=== PATIENT | female | born 1955 | race Caucasian/White ===

== ENCOUNTER → 2016-05-18 | Outpatient (CLI) | payer BC ==
[~2016-05-18] MED LIST: *PREMTA OR; /ONDA4TA OR; IBUP800T OR; IBUPPOW25 PO; MAALOX ADVANCED OR; MULTIVIT PO; NEUR300C OR; PAXI40TA OR; SOMA350T PO; TRAM50TA2 OR; VIT D 2000 PO; VITAMIN B COMPLE1 OR; [UNRECOGNIZED DRUG - OTHER]; [UNRECOGNIZED DRUG - OTHER]; [UNRECOGNIZED DRUG - OTHER] OR
== END ==
LOC: M PAIN 10:20
PROVIDERS: ATTEND Nurse Practitioner Family
DX: Z09 Encounter for follow-up examination after completed treatment for conditions other than malignant neoplasm (principal); G89.29 Other chronic pain; M47.812 Spondylosis without myelopathy or radiculopathy, cervical region; M79.1 Myalgia; M54.12 Radiculopathy, cervical region; K21.9 Gastro-esophageal reflux disease without esophagitis; Z79.891 Long term (current) use of opiate analgesic; Z79.82 Long term (current) use of aspirin; Z79.899 Other long term (current) drug therapy; Z86.19 Personal history of other infectious and parasitic diseases

== ENCOUNTER → 2016-08-03 | Outpatient (CLI) | payer BC ==
--- NOTE | 2016-08-03 13:44 | REP ---
Clinical: Left-sided pelvic pain. Technique: Transabdominal pelvic ultrasound followed by transvaginal examination for better evaluation of the endometrium and adnexa with color Doppler evaluation of the ovaries. Findings: Bladder is unremarkable and measures 10.1 x 8.1 x 7.4 cm . Normal anteverted uterus measures 8.4 x 2.0 x 4.6 cm. The endometrial complex measures 1.3 mm thickness. No discrete uterine or endometrial abnormalities are appreciated. Left ovary is normal in appearance and vascularity without evidence for torsion. Left ovary measures 1.4 x 1.1 x 1.7 cm ; R I = 0.53. The patient is status post right oophorectomy. No pelvic fluid or adnexal mass lesion. Impression: 1. Normal uterus and left ovary. 2. Status post right oophorectomy.
--- NOTE | 2016-08-03 13:54 | REPMRS ---
Patient History The patient states she had a clinical breast exam in 07/20 Patient is postmenopausal. Family history of breast cancer in 2 sisters under age 50 and breast cancer in paternal grandmother at age 50 or over. Digital Woman Screen Mammo: August 03, 2016 - Exam #: [id number] Bilateral CC and MLO view(s) were taken. Technologist: Sheila Agarwal, Technologist Prior study comparison: November 03, 2014, digital woman screen mammo performed at [facility]. October 31, 2011, digital woman screen mammo performed at [facility]. September 27, 2010, bilateral bilat screen digital mammo performed at [facility] to [facility]. FINDINGS: There are scattered fibroglandular densities. There has been no change in the appearance of the mammogram from the prior studies. There is a mild amount of residual fibroglandular tissue which is fairly symmetric. There is no interval development of dominant mass, architectural distortion, or clustered microcalcification suggestive of malignancy. No significant changes when compared with prior studies. ASSESSMENT: BI-RADS/ACR category 1 mammogram. Negative. Recommendation Routine screening mammogram in 1 year (for women over age 40). This mammogram was interpreted with the aid of an FDA-approved computer-aided dectection system. A. Negative x-ray reports should not delay biopsy if a dominant or clinically suspicious mass is present. B. Four to eight percent of cancers are not identified by mammography. C. Adenosis and dense breast may obscure an underlying neoplasm. Electronically Signed By: Pavel Langley MD 08/03/16 [id number]
== END ==
LOC: M WHC 12:25
PROVIDERS: ATTEND Advanced Practice Midwife
DX: R10.30 Lower abdominal pain, unspecified (principal); Z12.39 Encounter for other screening for malignant neoplasm of breast
CPT/HCPCS: 76830; 76856; G0202

== ENCOUNTER → 2016-09-28 | Outpatient (CLI) | payer BC ==
--- NOTE | 2016-10-02 13:08 | DEXA ---
AP SPINE L1 - L4 0.929 -2.1 -0.2 LT FEMUR TOTAL 0.678 -2.6 -1.2 RT FEMUR TOTAL 0.711 -2.4 -1.0 TOTAL BODY TOTAL OTHER DUAL FEMUR FRAX* ASSESSMENT Risk factors: None. 10 year probability of fracture Major osteoporotic fracture 10.9 % Hip fracture 2.3 % COMMENTS: There is low bone density of the spine. There is low bone density of the right hip. There is osteoporosis of the left hip. The density of the spine has decreased 12.9% since the initial exam on 2003. The spine density has decreased 17.1% since the most recent exam on 11/19/2005. The density of the left hip has decreased 16.7% since the initial exam on 09/19. The density of the left hip has decreased 16.2% since the most recent exam on . The density of the right hip has decreased 15.5% since the initial exam on 09/19. The density of the right hip has decreased 15.8% since the most recent exam on 11/19/2005. FOLLOW-UP: Recommendation for the next bone density exam: 2 years. RADHA
== END ==
LOC: M WHC 09:49
PROVIDERS: ATTEND Advanced Practice Midwife
DX: N95.8 Other specified menopausal and perimenopausal disorders (principal)

== ENCOUNTER → 2016-11-15 | Outpatient (CLI) | payer BC ==
--- NOTE | 2016-12-09 23:59 | ECWPNPC ---
PATIENT NAME: MARY KATE HAMMOND : 1955 GENDER: FEMALE VISIT DATE: 11/15/2016 DISCHARGE DATE: 11/15/16 1122 VISIT LOCKED DATE TIME: PHYSICIAN: LEON LAURENT RESOURCE: LEON LAURENT REASON FOR APPOINTMENT 1. BACK/NECK HISTORY OF PRESENT ILLNESS HISTORY OF PRESENT ILLNESS: PAIN THE PATIENT DESCRIBES THE PAIN... FALL RISK SCREENING: SCREENING :NO FALLS IN THE PAST YEAR TODAY'S VISIT: NOTES: RATES PAIN LEVEL TODAY 6/10. DESCRIBES PAIN CONSTANT, ACHING, TENDER, THROBBING AND SORE. REPORTS NEW NUMBNESS AND TINGLING/T IN LEFT UPPER EXT WITH NECK FLEXION. . CURRENT MEDICATIONS TAKING GABAPENTIN 300 MG CAPSULE 1 CAPSULE ORALLY THREE TIMES A DAY TAKING PAXIL 10 MG TABLET 1 TABLET IN THE MORNING ORALLY ONCE A DAY TAKING TRAMADOL HCL 50 MG TABLET 1 TABLET NEEDED ORALLY EVERY 6 HRS PRN PAIN MDD=4 CHRONIC PAIN TAKING METAXALONE 400 MG TABLET 1 ORALLY BEFORE BEDTIME NOT-TAKING PERCOCET 10-325 MG TABLET 1 TABLET ORALLY TAKE 1 TAB ON ARRIVAL TO CLINIC FOR PROCEDURE, AND TAKE ONE ON ARRIVAL TO HOME AFTER MDD=2 DISCONTINUED ASPIR-81 81 MG TABLET DELAYED RELEASE 1 TABLET ORALLY ONCE A DAY MEDICATION LIST REVIEWED AND RECONCILED WITH THE PATIENT PAST MEDICAL HISTORY HEPATITIS ACID REFLUX ALLERGIES NONE REVIEW OF SYSTEMS REVIEWED BY: PROVIDER: LEON LAURENT BOTTLING EQUIPMENT SALES REPRESENTATIVE . CONSTITUTIONAL: ANY CHANGE IN YOUR MEDICAL CONDITION? YES, ULCERS, TAKING 2 NEW MEDS PATIENT UNSURE OF WHAT. WILL LET US KNOW WHAT. . CHILLS NO . FEVER NO . INFECTION: DO YOU HAVE NEW INFECTIONS? NO . DO YOU HAVE HISTORY OF MRSA? NO . MUSCULOSKELETAL: ANY NEW PATTERNS OF PAIN OR NUMBNESS? YES, RIGHT ARM GOES COMPLETELY NUMB, WORSE WHEN DRIVING. . GASTROENTEROLOGY: GENERAL NEW DX OF GI ULCERS. DCS WORKING BUT NEEDS ADJUST. TO HAVE ENDOSCOPY IN DECEMBER . ANY NEW CHANGE IN BOWEL CONTROL? NO . GENITOURINARY: ANY NEW CHANGE IN BLADDER CONTROL? NO . IS THERE A CHANCE YOU COULD BE ? NO . HEMATOLOGY/LYMPH: DO YOU TAKE ANY BLOOD THINNERS? (FOR EXAMPLE- COUMADIN, PLAVIX, AGGRENOX, PLATEL, PRADAXA, OR XARELTO) NO . WHEN WAS YOUR LAST DOSE? DATE: TIME: . NEUROLOGY: HAVE YOU FALLEN IN THE PAST 6 MONTHS? YES . ANY NEW EXTREMITY NUMBNESS OR WEAKNESS? NO . CARDIOLOGY: DO YOU HAVE A PACEMAKER OR DEFIBRILLATOR? NO . RESPIRATORY: HAVE YOU BEEN SICK IN THE PAST WEEK? NO . FEVER NO . FLU LIKE SYMPTOMS? NO . COUGH NO . INTEGUMENTARY: DO YOU HAVE ANY RASHES OR OPEN SORES? NO . ALLERGIC/IMMUNO: ARE YOU ALLERGIC TO SHELLFISH OR IV DYE? NO . ANY NEW ALLERGIES? NO . PSYCHIATRIC: DO YOU HAVE THOUGHTS OF HURTING YOURSELF OR SOMEONE ELSE? NO . ARE YOU ABUSED, NEGLECTED, OR IN AN UNSAFE ENVIRONMENT? NO . ENDOCRINOLOGY: ARE YOU DIABETIC? NO . OTHER: DO YOU NEED ANY PRESCRIPTIONS? YES . IF YES, PLEASE LIST: TRAMADOL . ANY NEW PROBLEMS WITH YOUR MEDICATIONS? NO . WHEN DID YOU LAST EAT? ____ . WHEN DID YOU LAST DRINK? ____ . WHAT DID YOU LAST DRINK? ____ . NAME OF PERSON DRIVING YOU HOME? ____ . DO YOU HAVE ANY OTHER QUESTIONS OR CONCERNS NO . VITAL SIGNS WT 116.6 LBS, HT 64", BMI 20.01 INDEX, BP 111/63 MM HG, HR 70 /MIN, RR 16 /MIN, TEMP 97.7 F, OXYGEN SAT % 97%, REVIEWED BY: ANA. EXAMINATION GENERAL EXAMINATION: GENERAL APPEARANCE:COLOR PALE, ANXIOUS, THIN. PSYCHALERT , ORIENTED X 3 , APPROPRIATE MOOD AND AFFECT . LUNGS:CLEAR TO AUSCULTATION BILATERALLY. HEART:HEART RATE REGULAR. MUSCULOSKELETAL:MUSCLE STRENGTH TESTING 5/5 BILATERAL UPPER EXTREMITIES, TRIGGER POINTS:, ELICITED WITH PALPATION OVER CERVICAL SPINOUS PROCESSES AND ACROSS THE TRAPEZIUS MUSCLES BILATERALLY. RESTRICTION OF ROM IS NOTED. LOSS OF CERVICAL CURVE.. NEUROLOGIC EXAM:CN'S II-XII GROSSLY INTACT. INTACT SHOULDER SHRUG. . ASSESSMENTS CERVICAL SPONDYLOSIS - M47.812 (PRIMARY) MYALGIA - M79.1 CERVICAL RADICULOPATHY - M54.12 TREATMENT CERVICAL SPONDYLOSIS REFILL TRAMADOL HCL TABLET, 50 MG, 1 TABLET NEEDED, ORALLY, EVERY 6 HRS PRN PAIN MDD=4 CHRONIC PAIN, 30 DAY(S), 120, REFILLS 5 STOP METAXALONE TABLET, 400 MG, 1, ORALLY, BEFORE BEDTIME START BACLOFEN TABLET, 10 MG, 1 TABLET WITH FOOD OR MILK, ORALLY, BEFORE BEDTIME, 30 DAY(S), 30, REFILLS [address] [facility] SPINE, LUMBAR W/O [id number],SUSAN M 11/15/2016 11:13:17 AM > LUMBAR RADICULOPATHY - HAS DORSAL COLUMN STIM ARMIDA DAVID 11/20/2016 1:57:44 PM > NO AUTH NEEDED, BASED ON MEDICAL NECESSITY REF [id number] NOTES: USE NECK COLLAR. APPLY ICY-HOT. CONSIDER INJECTION CERVICAL FACET OR LUMBAR FACET BLOCK IN FUTURECALL BECKY [employer]ES /[employer] ABOUT DCS ADJUSTMENT [phone]. PROCEDURE CODES FA211 ESTABILISHED PATIENT [facility] FACILITY CHARGE DISPOSITION & COMMUNICATION FOLLOW UP 3 MONTH (REASON: NECK/BACK CHECK AUTH FOR CT LUMBAR SPINE) ELECTRONICALLY SIGNED BY ALON WINKLER ON 12/09/2016 AT 11:19 AM EDT DISCLAIMER : THIS IS A VISIT SUMMARY EXTRACTED FROM THE [employer] CHART. IT IS NOT A COPY OF THE [employer] PROGRESS NOTE. RADHA
== END ==
LOC: M PAIN 10:00
PROVIDERS: ATTEND Nurse Practitioner Family
DX: M47.812 Spondylosis without myelopathy or radiculopathy, cervical region (principal); M54.12 Radiculopathy, cervical region; M79.1 Myalgia; K21.9 Gastro-esophageal reflux disease without esophagitis; K25.9 Gastric ulcer, unspecified as acute or chronic, without hemorrhage or perforation; Z79.891 Long term (current) use of opiate analgesic; Z79.899 Other long term (current) drug therapy

== ENCOUNTER → 2017-01-17 | Outpatient (CLI) | payer BC ==
--- NOTE | 2017-02-07 02:02 | ECWPNPC ---
PATIENT NAME: MARY KATE HAMMOND : 1955 GENDER: FEMALE VISIT DATE: 01/17/2017 DISCHARGE DATE: 01/17/17 1256 VISIT LOCKED DATE TIME: PHYSICIAN: LEON LAURENT RESOURCE: LEON LAURENT HISTORY OF PRESENT ILLNESS HISTORY OF PRESENT ILLNESS: PAIN THE PATIENT DESCRIBES THE PAIN... FALL RISK SCREENING: SCREENING :NO FALLS IN THE PAST YEAR TODAY'S VISIT: NOTES: PRATES PAIN TODAY 6/10. NOTES NUMBNESS INTERMITTANTLY IN ALL FINGERS BOTH HANDS. SEEMS TO BE WORSE AT WHEN DRIVING, WHEN SLEEPING. IS CONTINUING TO HAVE PAIN ACROSS THE LOW BACK WITH RADIATION TO LEFT LEG TO FOOT. OCCAS ON RIGHT. CURRENT MEDICATIONS TAKING GABAPENTIN 300 MG CAPSULE 2 ORALLY THREE TIMES A DAY TAKING PAXIL 10 MG TABLET 1 TABLET IN THE MORNING ORALLY ONCE A DAY TAKING TRAMADOL HCL 50 MG TABLET 1 TABLET NEEDED ORALLY EVERY 6 HRS PRN PAIN MDD=4 CHRONIC PAIN TAKING BACLOFEN 10 MG TABLET 1 TABLET WITH FOOD OR MILK ORALLY BEFORE BEDTIME TAKING CALCIUM + D 600-200 MG-UNIT TABLET 1 TABLET WITH FOOD ORALLY ONCE A DAY NOT-TAKING PERCOCET 10-325 MG TABLET 1 TABLET ORALLY TAKE 1 TAB ON ARRIVAL TO CLINIC FOR PROCEDURE, AND TAKE ONE ON ARRIVAL TO HOME AFTER MDD=2 MEDICATION LIST REVIEWED AND RECONCILED WITH THE PATIENT PAST MEDICAL HISTORY HEPATITIS ACID REFLUX ALLERGIES NONE SOCIAL HISTORY GENERAL: TOBACCO USE ARE YOU A:NONSMOKER LEARNING BARRIERS / SPECIAL NEEDS ORIENTED TO PLAN OF CARE: PATIENT, PAIN MANAGEMENT PATIENT, ORIENTED TO PLAN OF CARE: PATIENT, PAIN MANAGEMENT PATIENT. NEW PATIENT PAIN DIARY TODAY'S VISITNOTES FROM 0-10, WHAT LEVEL IS YOUR PAIN TODAY?0 PAIN CLINIC PFS, CLERGY, PUBLIC HEALTH REFERRALS PFS REFERRAL NEEDED?NO CLERGY REFERRAL NEEDED?NO PUBLIC HEALTH REFERRAL NEEDED?NO WAS THE PROVIDER NOTIFIED OF ANY PERTINENT INFO?NO HAS THE PATIENT BEEN EDUCATED REGARDING HIS/HER PLAN OF CARE?YES HAS THE PATIENT BEEN EDUCATED REGARDING PAIN, THE RISK FOR PAIN, THE IMPORTANCE OF EFFECTIVE PAIN MANAGEMENT, AND THE PAIN ASSESSMENT PROCESS?YES ADVANCE DIRECTIVES HEALTH CARE PROXY?YES NAME OF HCP LIYA HAMMOND CONTACT # FOR HCP DO YOU HAVE A COPY WITH YOU? NO DO YOU HAVE A DNR? NO LIVING WILL? YES REVIEW OF SYSTEMS REVIEWED BY: PROVIDER: LEON LAURENT ANALYTICS DEVELOPER . CONSTITUTIONAL: ANY CHANGE IN YOUR MEDICAL CONDITION? NO . CHILLS NO . FEVER NO . INFECTION: DO YOU HAVE NEW INFECTIONS? NO . DO YOU HAVE HISTORY OF MRSA? NO . MUSCULOSKELETAL: ANY NEW PATTERNS OF PAIN OR NUMBNESS? YES . GASTROENTEROLOGY: ANY NEW CHANGE IN BOWEL CONTROL? NO . GENITOURINARY: ANY NEW CHANGE IN BLADDER CONTROL? NO . IS THERE A CHANCE YOU COULD BE ? NO . HEMATOLOGY/LYMPH: DO YOU TAKE ANY BLOOD THINNERS? (FOR EXAMPLE- COUMADIN, PLAVIX, AGGRENOX, PLATEL, PRADAXA, OR XARELTO) NO . WHEN WAS YOUR LAST DOSE? DATE: TIME: . NEUROLOGY: HAVE YOU FALLEN IN THE PAST 6 MONTHS? YES . ANY NEW EXTREMITY NUMBNESS OR WEAKNESS? YES . LOSS OF CONSCIOUSNESS OCCURRED 1 MONTH AGO COULD NOT AROUSE WITH VERBAL STIMULI - REFUSED ER. HAD WEAKNESS IN LEFT LEG WHICH RESOLVED IN A FEW HOURS. WILL BE SEEING CARDIOLOGY SOON. DID NOT HAVE AN IMAGING OF BRAIN . CARDIOLOGY: DO YOU HAVE A PACEMAKER OR DEFIBRILLATOR? NO . RESPIRATORY: HAVE YOU BEEN SICK IN THE PAST WEEK? NO . FEVER NO . FLU LIKE SYMPTOMS? NO . COUGH NO . INTEGUMENTARY: DO YOU HAVE ANY RASHES OR OPEN SORES? NO . ALLERGIC/IMMUNO: ARE YOU ALLERGIC TO SHELLFISH OR IV DYE? NO . ANY NEW ALLERGIES? NO . PSYCHIATRIC: DO YOU HAVE THOUGHTS OF HURTING YOURSELF OR SOMEONE ELSE? NO . ARE YOU ABUSED, NEGLECTED, OR IN AN UNSAFE ENVIRONMENT? NO . ENDOCRINOLOGY: ARE YOU DIABETIC? NO . OTHER: DO YOU NEED ANY PRESCRIPTIONS? YES . IF YES, PLEASE LIST: ____ . ANY NEW PROBLEMS WITH YOUR MEDICATIONS? NO . WHEN DID YOU LAST EAT? ____ . WHEN DID YOU LAST DRINK? ____ . WHAT DID YOU LAST DRINK? ____ . NAME OF PERSON DRIVING YOU HOME? ____ . DO YOU HAVE ANY OTHER QUESTIONS OR CONCERNS NO . VITAL SIGNS WT 115.6 LBS, HT 64", BMI 19.84 INDEX, BP 98/59 MM HG, HR 84 /MIN, RR 18 /MIN, TEMP 98.9 F, OXYGEN SAT % 97, REVIEWED BY: VD. EXAMINATION GENERAL EXAMINATION: GENERAL APPEARANCE:COLOR PALE, THIN. PSYCHALERT , ORIENTED X 3 , APPROPRIATE MOOD AND AFFECT . LUNGS:CLEAR TO AUSCULTATION BILATERALLY. HEART:HEART RATE REGULAR. MUSCULOSKELETAL:MUSCLE STRENGTH TESTING 5/5 BILATERAL UPPER EXTREMITIES, TRIGGER POINTS:, ELICITED WITH PALPATION OVER CERVICAL SPINOUS PROCESSES AND ACROSS THE TRAPEZIUS MUSCLES BILATERALLY. RESTRICTION OF ROM IS NOTED. POINT TENDERNESS OVER LUMBAR SPINOUS PROCESSES AND BILATERALLY OVER SACRAL ILIAC JOINTS.. NEUROLOGIC EXAM:CN'S II-XII GROSSLY INTACT. INTACT SHOULDER SHRUG. . ASSESSMENTS CERVICAL SPONDYLOSIS - M47.812 (PRIMARY) MYALGIA - M79.1 CERVICAL RADICULOPATHY - M54.12 LUMBAR DISC DISPLACEMENT WITHOUT MYELOPATHY - M51.26 LUMBAR RADICULOPATHY - M54.16 TREATMENT CERVICAL SPONDYLOSIS REFILL TRAMADOL HCL TABLET, 50 MG, 1 TABLET NEEDED, ORALLY, EVERY 6 HRS PRN PAIN MDD=4 CHRONIC PAIN, 30 DAY(S), 120, REFILLS 5 NOTES: DX M51. 26: INTRALAMIAR EPIDURAL AT L4-5 FOR LEFT> RIGHT RADICULAR PAIN. HAS DORSAL COLUMN STIM IN PLACE. WILL ORDER BILATERAL UPPER EXTREMITY EMG/NCS WITH [facility] NEUROLOGY. NEED OK FROM CARDIOLOGY DR [facility]),CERVICAL EPIDURAL INJECTION: YOUR EXPERIENCE MATERIAL WAS PRINTED,WHAT IS LUMBAR EPIDURAL INJECTION? MATERIAL WAS PRINTED,WHAT IS LUMBAR EPIDURAL INJECTION? MATERIAL WAS PRINTED. PROCEDURE CODES FA211 ESTABILISHED PATIENT [facility] FACILITY CHARGE DISPOSITION & COMMUNICATION FOLLOW UP AFTER INJECTION (REASON: CHECK AUTH INTRALAMIAR EPIDURAL AT L4-5 FOR LEFT> RIGHT RADICULAR PAIN. HAS DORSAL COLUMN STIM IN PL) ELECTRONICALLY SIGNED BY ALON WINKLER ON 02/04/2017 AT 09:01 AM EDT DISCLAIMER : THIS IS A VISIT SUMMARY EXTRACTED FROM THE [employer] CHART. IT IS NOT A COPY OF THE [employer] PROGRESS NOTE. MTDD
== END ==
LOC: M PAIN 11:15
PROVIDERS: ATTEND Nurse Practitioner Family
DX: G89.29 Other chronic pain (principal); M47.812 Spondylosis without myelopathy or radiculopathy, cervical region; M54.12 Radiculopathy, cervical region; M51.26 Other intervertebral disc displacement, lumbar region; M54.16 Radiculopathy, lumbar region; M79.1 Myalgia; K21.9 Gastro-esophageal reflux disease without esophagitis; Z79.899 Other long term (current) drug therapy

== ENCOUNTER → 2017-05-16 | Outpatient (CLI) | payer BC | LOC: M PAIN 11:00 | DX: M47.812 Spondylosis without myelopathy or radiculopathy, cervical region (principal); M79.1 Myalgia; M54.12 Radiculopathy, cervical region; M51.26 Other intervertebral disc displacement, lumbar region; M54.16 Radiculopathy, lumbar region; Z79.891 Long term (current) use of opiate analgesic; Z79.899 Other long term (current) drug therapy | CPT/HCPCS: G0463 ==

== ENCOUNTER → 2017-07-30 | Outpatient (CLI) | payer BC ==
[~2017-07-30] MED LIST changes: -*PREMTA OR; -/ONDA4TA OR; +BUPIVACAINE HCL 0.25% 10 ML VIAL As Ordered; +BUPIVACAINE HCL 0.25% 30 ML VIAL As Ordered; -IBUP800T OR; -IBUPPOW25 PO; -MAALOX ADVANCED OR; -MULTIVIT PO; -NEUR300C OR; -PAXI40TA OR; -SOMA350T PO; -TRAM50TA2 OR; +TRIAMCINOLONE ACETONIDE SUSP 40 MG/ML VIAL (J3301) As Ordered; -VIT D 2000 PO; -VITAMIN B COMPLE1 OR; -[UNRECOGNIZED DRUG - OTHER]; -[UNRECOGNIZED DRUG - OTHER]; -[UNRECOGNIZED DRUG - OTHER] OR
== END ==
LOC: M PAIN 15:30
DX: G89.29 Other chronic pain (principal); M79.1 Myalgia; M54.2 Cervicalgia; M25.512 Pain in left shoulder; M54.6 Pain in thoracic spine; Z79.899 Other long term (current) drug therapy; Z86.19 Personal history of other infectious and parasitic diseases
CPT/HCPCS: J3301

== ENCOUNTER → 2017-08-14 | Outpatient (CLI) | payer BC | LOC: M PAIN 13:00 | DX: M47.812 Spondylosis without myelopathy or radiculopathy, cervical region (principal); M79.1 Myalgia; M54.12 Radiculopathy, cervical region; M51.26 Other intervertebral disc displacement, lumbar region; M54.16 Radiculopathy, lumbar region; Z79.891 Long term (current) use of opiate analgesic; Z79.899 Other long term (current) drug therapy | CPT/HCPCS: G0463 ==

== ENCOUNTER → 2017-10-24 | Outpatient (CLI) | payer BC | LOC: M RAD 07:22 | DX: R10.13 Epigastric pain (principal); R68.81 Early satiety; B18.2 Chronic viral hepatitis C; K59.00 Constipation, unspecified | CPT/HCPCS: 78264 ==

== ENCOUNTER → 2017-11-15 | Outpatient (CLI) | payer BC | LOC: M PAIN 13:45 | DX: M47.812 Spondylosis without myelopathy or radiculopathy, cervical region (principal); M79.1 Myalgia; M54.12 Radiculopathy, cervical region; M51.26 Other intervertebral disc displacement, lumbar region; M54.16 Radiculopathy, lumbar region; K21.9 Gastro-esophageal reflux disease without esophagitis; Z79.891 Long term (current) use of opiate analgesic; Z79.899 Other long term (current) drug therapy | CPT/HCPCS: G0463 ==

== ENCOUNTER → 2018-02-17 | Outpatient (CLI) | payer BC | LOC: M PAIN 13:45 | DX: M47.812 Spondylosis without myelopathy or radiculopathy, cervical region (principal); M79.18 Myalgia, other site; M54.12 Radiculopathy, cervical region; M51.26 Other intervertebral disc displacement, lumbar region; M54.16 Radiculopathy, lumbar region; Z79.899 Other long term (current) drug therapy; Z86.19 Personal history of other infectious and parasitic diseases | CPT/HCPCS: G0463 ==

== ENCOUNTER → 2018-04-03 | Outpatient (CLI) | payer BC | LOC: M PAIN 13:00 | DX: M47.812 Spondylosis without myelopathy or radiculopathy, cervical region (principal); M54.12 Radiculopathy, cervical region; G89.29 Other chronic pain; Z79.899 Other long term (current) drug therapy; Z86.19 Personal history of other infectious and parasitic diseases | CPT/HCPCS: G0463 ==

== ENCOUNTER → 2018-06-04 | Outpatient (CLI) | payer MEDICARE, BC ==
[~2018-06-04] MED LIST changes: +*PREMTA OR; +/ONDA4TA OR; -BUPIVACAINE HCL 0.25% 10 ML VIAL As Ordered; -BUPIVACAINE HCL 0.25% 30 ML VIAL As Ordered; +IBUP800T OR; +IBUPPOW25 PO; +MAALOX ADVANCED OR; +MULTIVIT PO; +NEUR300C OR; +PAXI40TA OR; +SOMA350T PO; +TRAM50TA2 OR; -TRIAMCINOLONE ACETONIDE SUSP 40 MG/ML VIAL (J3301) As Ordered; +VIT D 2000 PO; +VITAMIN B COMPLE1 OR; +[UNRECOGNIZED DRUG - OTHER]; +[UNRECOGNIZED DRUG - OTHER]; +[UNRECOGNIZED DRUG - OTHER] OR
[2018-06-07 00:07] LABS: HPV HYBRID CAPTURE II Negative (Negative)
== END ==
LOC: M SMT 11:12
PROVIDERS: ATTEND Advanced Practice Midwife
DX: Z12.4 Encounter for screening for malignant neoplasm of cervix (principal); N88.8 Other specified noninflammatory disorders of cervix uteri
CPT/HCPCS: 36415; 87624; G0123

== ENCOUNTER → 2018-09-05 | Outpatient (CLI) | payer MEDICARE, BC ==
[~2018-09-05] MED LIST changes: -/ONDA4TA OR; +ONDA-1 OR
--- NOTE | 2018-10-01 00:33 | ECWPNPC ---
PATIENT NAME: MARY KATE HAMMOND : 1955 GENDER: FEMALE VISIT DATE: 09/05/2018 DISCHARGE DATE: 09/05/18 1217 VISIT LOCKED DATE TIME: PHYSICIAN: HARRIETT GRIMES RESOURCE: HARRIETT GRIMES REASON FOR APPOINTMENT 1. NECK HISTORY OF PRESENT ILLNESS HISTORY OF PRESENT ILLNESS: HERE FOR F/U OF CHRONIC NECK AND LOW BACK PAIN.WORSE AREA OF PAIN IS LBP.PAIN RADIATES INTO LEFT LEG.RATING PAIN VAS 6/10.REVIEWED CT OF LUMBAR SPINE AND DISCUSSED MEDICATION AND TREATMENT OPTIONS.REPORTING RESTLESS LEG SYMPTOMS AT NIGHT. PAIN THE PATIENT DESCRIBES THE PAIN... THE PATIENT DESCRIBES THE PAIN... FALL RISK SCREENING: SCREENING :NO FALLS REPORTED IN THE LAST YEAR CURRENT MEDICATIONS TAKING PAXIL 10 MG TABLET 1 TABLET IN THE MORNING ORALLY ONCE A DAY TAKING CALCIUM + D 600-200 MG-UNIT TABLET 1 TABLET WITH FOOD ORALLY ONCE A DAY TAKING GABAPENTIN 300 MG CAPSULE 2 ORALLY THREE TIMES A DAY AND MAY TAKE A 3RD CAP AT NITE MDD=7 TAKING TRAMADOL HCL 50 MG TABLET 1 TABLET NEEDED ORALLY EVERY 6 HRS PRN PAIN MDD=4 CHRONIC PAIN TAKING BACLOFEN 10 MG TABLET 1 TABLET WITH FOOD OR MILK ORALLY BEFORE BEDTIME MEDICATION LIST REVIEWED AND RECONCILED WITH THE PATIENT PAST MEDICAL HISTORY HEPATITIS ACID REFLUX NECK AND BACK PAIN ALLERGIES N.K.D.A. SURGICAL HISTORY CERVICAL DISCECTOMY C5-6 SPINAL STIMULATOR 2 C-SECTIONS APPENDECTOMY 1972 CHOLECYSTECTOMY 1988 BILARTERAL TUBAL LIGATION 1975 REVERSAL OF TUBAL 1984 FAMILY HISTORY FATHER: 62 YRS, DIAGNOSED WITH CANCER MOTHER: 83 YRS, HYPERTENSION, HEART DISEASE 3 SON(S) - HEALTHY. FATHER-STOMACH CA. SOCIAL HISTORY GENERAL: TOBACCO USE ARE YOU A: NONSMOKER. EDUCATION LEVEL OF EDUCATION:HIGH SCHOOL LANGUAGE LANGUAGES SPOKEN:CITIZEN OF [place] DOME[employer] VIOLENCE DO YOU FEEL SAFE IN YOUR ENVIRONMENT?YES NEW PATIENT PAIN DIARY TODAY'S VISITNOTES RECREATIONAL DRUG USE DRUG USE?NO LEARNING BARRIERS / SPECIAL NEEDS BARRIERS TO LEARNING?NO HEARING IMPAIRED?NO VISION IMPAIRED?YES :CORRECTIVE LENSES COGNITIVELY IMPAIRED?NO READINESS TO LEARN?YES LEARNING PREFERENCES?YES :DEMONSTRATION/VERBAL INSTRUCTION LEARNING CAPABILITIES PRESENT?YES EMOTIONAL BARRIERS?NO SPECIAL DEVICES?NO VENETIAN BLIND MAKER NEEDED?NO PAIN CLINIC PFS, CLERGY, PUBLIC HEALTH REFERRALS PFS REFERRAL NEEDED?NO CLERGY REFERRAL NEEDED?NO PUBLIC HEALTH REFERRAL NEEDED?NO WAS THE PROVIDER NOTIFIED OF ANY PERTINENT INFO?YES N/A HAS THE PATIENT BEEN EDUCATED REGARDING HIS/HER PLAN OF CARE?YES HAS THE PATIENT BEEN EDUCATED REGARDING PAIN, THE RISK FOR PAIN, THE IMPORTANCE OF EFFECTIVE PAIN MANAGEMENT, AND THE PAIN ASSESSMENT PROCESS?YES LATEX QUESTIONNAIRE LATEX ALLERGY : HAVE YOU EVER DEVELOPED ANY TYPE OF REACTION AFTER HANDLING LATEX PRODUCTS SUCH RUBBER GLOVES, CONDOMS, DIAPHRAGMS, BALLOONS, SOCKS, OR UNDERWEAR?NO LATEX ALLERGY : HAVE YOU EVER DEVELOPED ANY TYPE OF REACTION DURING OR AFTER DENTAL APPOINTMENT, VAGINAL/RECTAL EXAMINATION, SURGICAL PROCEDURE, OR ANY OTHER EXPOSURE?NO LATEX RISK : HAVE YOU EVER HAD ANY DIFFICULTY BREATHING OR HIVES AFTER EATING OR HANDLING ANY FRUITS, OR VEGETABLES; SUCH KIWI, BANANAS, STONE FRUITS, OR CHESTNUTSNO LATEX RISK : DO YOU HAVE A PREVIOUS PERSONAL HISTORY OF MORE THAN NINE SURGERIES, SPINA BIFIDA, OR REPEATED CATHERTIZATIONS? NO LATEX RISK : ARE YOU FREQUENTLY EXPOSED TO LATEX PRODUCTS IN YOUR OCCUPATION?NO DATE ASKED : 09/05/2018 CAFFEINE CAFFEINE USE?YES HOW OFTEN AND HOW MUCH? DAILY USE ADVANCE DIRECTIVE ADVANCE DIRECTIVE DISCUSSED WITH PATIENT:YES PT STATES SHE HAS A HCP, LIVING WILL AND POA PT. ASKED TO BRING COPIES IN FOR OUR RECORD. LIYA HAMMOND [phone] [facility] [id number] JAINISM ALCOHOL SCREENING DID YOU HAVE A DRINK CONTAINING ALCOHOL IN THE PAST YEAR?YES HOW OFTEN DID YOU HAVE A DRINK CONTAINING ALCOHOL IN THE PAST YEAR?MONTHLY OR LESS (1 POINT) HOW MANY DRINKS DID YOU HAVE ON A TYPICAL DAY WHEN YOU WERE DRINKING IN THE PAST YEAR?1 OR 2 (0 POINTS) HOW OFTEN DID YOU HAVE SIX OR MORE DRINKS ON ONE OCCASION IN THE PAST YEAR?NEVER (0 POINTS) POINTS1 INTERPRETATIONNEGATIVE 04/03/18 1325 REVIEWED WITH PT. AD. HOSPITALIZATION/MAJOR DIAGNOSTIC PROCEDURE SURGERIES CHILD REVIEW OF SYSTEMS REVIEWED BY: PROVIDER: HARRIETT LEDBETTER . CONSTITUTIONAL: ANY CHANGE IN YOUR MEDICAL CONDITION? NO . CHILLS NO . FEVER NO . INFECTION: DO YOU HAVE NEW INFECTIONS? NO . DO YOU HAVE HISTORY OF MRSA? NO . MUSCULOSKELETAL: ANY NEW PATTERNS OF PAIN OR NUMBNESS? NO . GASTROENTEROLOGY: ANY NEW CHANGE IN BOWEL CONTROL? NO . GENITOURINARY: ANY NEW CHANGE IN BLADDER CONTROL? YES, PAIN IN LOWER BACK TRIGGERS URGENCY . IS THERE A CHANCE YOU COULD BE ? NO . HEMATOLOGY/LYMPH: DO YOU TAKE ANY BLOOD THINNERS? (FOR EXAMPLE- COUMADIN, PLAVIX, AGGRENOX, PLATEL, PRADAXA, OR XARELTO) NO . WHEN WAS YOUR LAST DOSE? DATE: TIME: . NEUROLOGY: HAVE YOU FALLEN IN THE PAST 12 MONTHS? YES, PT STATES SHE WAS AT HOME, TRIPPED ON STAIRS, NO INJURY FROM FALL, BRUISING, NO REPORT TO ED . ANY NEW EXTREMITY NUMBNESS OR WEAKNESS? YES, BILATERAL ARMS AND HANDS ARE BECOMING MORE NUMB AND WEAK, INTENSIFYING . CARDIOLOGY: DO YOU HAVE A PACEMAKER OR DEFIBRILLATOR? NO . RESPIRATORY: HAVE YOU BEEN SICK IN THE PAST WEEK? NO . FEVER NO . FLU LIKE SYMPTOMS? NO . COUGH NO . INTEGUMENTARY: DO YOU HAVE ANY RASHES OR OPEN SORES? NO . ALLERGIC/IMMUNO: ARE YOU ALLERGIC TO IV DYE? NO . ANY NEW ALLERGIES? NO . PSYCHIATRIC: DO YOU HAVE THOUGHTS OF HURTING YOURSELF OR SOMEONE ELSE? NO . ARE YOU ABUSED, NEGLECTED, OR IN AN UNSAFE ENVIRONMENT? NO . ENDOCRINOLOGY: ARE YOU DIABETIC? NO . OTHER: DO YOU NEED ANY PRESCRIPTIONS? YES TRAMADOL, NEURONTIN, BACLOFEN . IF YES, PLEASE LIST: ____ . ANY NEW PROBLEMS WITH YOUR MEDICATIONS? NO . WHEN DID YOU LAST EAT? ____ . WHEN DID YOU LAST DRINK? ____ . WHAT DID YOU LAST DRINK? ____ . NAME OF PERSON DRIVING YOU HOME? ____ . DO YOU HAVE ANY OTHER QUESTIONS OR CONCERNS NO . VITAL SIGNS WT 116.8 LBS, HT 64", BMI 20.05 INDEX, BP 109/60 MM HG, HR 83 /MIN, RR 16 /MIN, TEMP 96.3 F, OXYGEN SAT % 98%, SAFE IN ENV? (Y/N) Y, NA INITIALS NH 11:16, REVIEWED BY: LUCIA. EXAMINATION GENERAL EXAMINATION: GENERAL APPEARANCE: AWAKE,ALERT ,PLEAASANT . PSYCH AFFECT NORMAL . LUNGS: LUNG CARVALHO ARE CLEAR TO AUSCULTATION BILATERALLY. GOOD MOVEMENT OF AIR . HEART: S1, S2 IN A REGULAR RATE AND RHYTHM. NO SIGNIFICANT MURMURS, RUBS OR GALLOPS NOTED . MUSCULOSKELETAL:WEAK OVER LEFT LEG.. LUMBAR SACRAL SPINE PALPATION: + FOR PAIN OVER L/S SPINE. + FOR PAIN OVER L/S PARASPINALS. NEUROLOGIC EXAM: NORMAL SENSATION LIGHT TOUCH BILAT. LOWER EXTREMITIES. DIAGNOSTIC TESTS REVIEWED CT L/S SPINE-12/07/16. ASSESSMENTS CERVICAL SPONDYLOSIS - M47.812 TREATMENT CERVICAL SPONDYLOSIS CONTINUE GABAPENTIN CAPSULE, 300 MG, 2, ORALLY, THREE TIMES A DAY AND MAY TAKE A 3RD CAP AT NITE MDD=7 CONTINUE TRAMADOL HCL TABLET, 50 MG, 1 TABLET NEEDED, ORALLY, EVERY 6 HRS PRN PAIN MDD=4 CHRONIC PAIN, 30 DAY(S), 120, REFILLS 2 CONTINUE BACLOFEN TABLET, 10 MG, 1 TABLET WITH FOOD OR MILK, ORALLY, BEFORE BEDTIME NOTES: ISTOP REGISTRY REVIEWED AND DEMONSTRATES COMPLLIANCE. OTHERS START ROPINIROLE HCL TABLET, 0.25 MG, 1 TABLET 1 TO 3 HOURS BEFORE BEDTIME, ORALLY, ONCE A DAY, 30 DAY(S), 30, REFILLS 2 NOTES: L4/5 LESI. PROCEDURE CODES FA211 ESTABILISHED PATIENT [facility] FACILITY CHARGE DISPOSITION & COMMUNICATION FOLLOW UP POST PROC (REASON: L4/5 LESI) ELECTRONICALLY SIGNED BY KHLOE MARTINEZ ON 09/30/2018 AT 08:38 AM EDT DISCLAIMER : THIS IS A VISIT SUMMARY EXTRACTED FROM THE [employer] CHART. IT IS NOT A COPY OF THE [employer] PROGRESS NOTE. RADHA
== END ==
LOC: M PAIN 11:00
PROVIDERS: ATTEND Nurse Practitioner Family
DX: M47.812 Spondylosis without myelopathy or radiculopathy, cervical region (principal); G89.29 Other chronic pain; Z79.899 Other long term (current) drug therapy; Z86.19 Personal history of other infectious and parasitic diseases

== ENCOUNTER → 2018-10-21 | Outpatient (CLI) | payer MEDICARE, BC ==
[~2018-10-21] MED LIST changes: +ISOVUE-M 300 61% 15ML VIAL (Q9967) As Ordered ONE; +LIDOCAINE 1% SDV INJ 30 ML VIAL As Ordered ONE; +diazePAM 5 MG TAB As Ordered ONE; +methylPREDNISolone SUSP 40 MG/ML (DEPO-medrol) VIAL (J1030) As Ordered ONE; +oxyCODONE 5MG TAB As Ordered ONE
--- NOTE | 2018-10-21 11:01 | REP ---
Partial lumbar spine series: Five views . History: Injection procedure for pain. 27 seconds of fluoroscopy time is reported. Findings: A sequence of five fluoroscopically obtained last image hold procedural spot radiographs of the lumbar and thoracic spine document needle position and contrast injection associated with injection procedure. A thoracic dorsal column stimulator device is visible as well. Electronically Signed by Thor Kolb MD 10/21/2018 10:52 A
--- NOTE | 2018-11-03 01:12 | ECWPNPC ---
PATIENT NAME: MARY KATE HAMMOND : 1955 GENDER: FEMALE VISIT DATE: 10/21/2018 DISCHARGE DATE: 10/21/18 1130 VISIT LOCKED DATE TIME: PHYSICIAN: MCKINLEY LEBRON MD RESOURCE: MCKINLEY LEBRON MD REASON FOR APPOINTMENT 1. LESI HISTORY OF PRESENT ILLNESS HISTORY OF PRESENT ILLNESS: PAIN THE PATIENT DESCRIBES THE PAIN... FALL RISK SCREENING: SCREENING :NO FALLS REPORTED IN THE LAST YEAR CURRENT MEDICATIONS TAKING PAXIL 10 MG TABLET 1 TABLET IN THE MORNING ORALLY ONCE A DAY, NOTES: 10/21/18 0600 TAKING CALCIUM + D 600-200 MG-UNIT TABLET 1 TABLET WITH FOOD ORALLY ONCE A DAY, NOTES: 10/20/18 PM TAKING ROPINIROLE HCL 0.25 MG TABLET 1 TABLET 1 TO 3 HOURS BEFORE BEDTIME ORALLY ONCE A DAY, NOTES: 10/20/18 PM TAKING GABAPENTIN 300 MG CAPSULE 2 ORALLY THREE TIMES A DAY AND MAY TAKE A 3RD CAP AT NITE MDD=7, NOTES: 10/21/18 0600 TAKING TRAMADOL HCL 50 MG TABLET 1 TABLET NEEDED ORALLY EVERY 6 HRS PRN PAIN MDD=4 CHRONIC PAIN, NOTES: 10/21/18 0600 TAKING BACLOFEN 10 MG TABLET 1 TABLET WITH FOOD OR MILK ORALLY BEFORE BEDTIME, NOTES: 10/20/18 PM MEDICATION LIST REVIEWED AND RECONCILED WITH THE PATIENT PAST MEDICAL HISTORY HEPATITIS ACID REFLUX NECK AND BACK PAIN ALLERGIES N.K.D.A. SURGICAL HISTORY CERVICAL DISCECTOMY C5-6 SPINAL STIMULATOR 2 C-SECTIONS APPENDECTOMY 1972 CHOLECYSTECTOMY 1988 BILARTERAL TUBAL LIGATION 1975 REVERSAL OF TUBAL 1984 FAMILY HISTORY FATHER: 62 YRS, DIAGNOSED WITH CANCER MOTHER: 83 YRS, HYPERTENSION, HEART DISEASE 3 SON(S) - HEALTHY. FATHER-STOMACH CA. SOCIAL HISTORY GENERAL: TOBACCO USE ARE YOU A: NONSMOKER. EDUCATION LEVEL OF EDUCATION:HIGH SCHOOL LANGUAGE LANGUAGES SPOKEN:SAMI DOMESTIC VIOLENCE DO YOU FEEL SAFE IN YOUR ENVIRONMENT?YES NEW PATIENT PAIN DIARY TODAY'S VISITNOTES RECREATIONAL DRUG USE DRUG USE?NO LEARNING BARRIERS / SPECIAL NEEDS BARRIERS TO LEARNING?NO HEARING IMPAIRED?NO VISION IMPAIRED?YES :CORRECTIVE LENSES COGNITIVELY IMPAIRED?NO READINESS TO LEARN?YES LEARNING PREFERENCES?YES :DEMONSTRATION/VERBAL INSTRUCTION LEARNING CAPABILITIES PRESENT?YES EMOTIONAL BARRIERS?NO SPECIAL DEVICES?NO REAL ESTATE LAWYER NEEDED?NO PAIN CLINIC PFS, CLERGY, PUBLIC HEALTH REFERRALS PFS REFERRAL NEEDED?NO CLERGY REFERRAL NEEDED?NO PUBLIC HEALTH REFERRAL NEEDED?NO WAS THE PROVIDER NOTIFIED OF ANY PERTINENT INFO?YES N/A HAS THE PATIENT BEEN EDUCATED REGARDING HIS/HER PLAN OF CARE?YES HAS THE PATIENT BEEN EDUCATED REGARDING PAIN, THE RISK FOR PAIN, THE IMPORTANCE OF EFFECTIVE PAIN MANAGEMENT, AND THE PAIN ASSESSMENT PROCESS?YES LATEX QUESTIONNAIRE LATEX ALLERGY : HAVE YOU EVER DEVELOPED ANY TYPE OF REACTION AFTER HANDLING LATEX PRODUCTS SUCH RUBBER GLOVES, CONDOMS, DIAPHRAGMS, BALLOONS, SOCKS, OR UNDERWEAR?NO LATEX ALLERGY : HAVE YOU EVER DEVELOPED ANY TYPE OF REACTION DURING OR AFTER DENTAL APPOINTMENT, VAGINAL/RECTAL EXAMINATION, SURGICAL PROCEDURE, OR ANY OTHER EXPOSURE?NO LATEX RISK : HAVE YOU EVER HAD ANY DIFFICULTY BREATHING OR HIVES AFTER EATING OR HANDLING ANY FRUITS, OR VEGETABLES; SUCH KIWI, BANANAS, STONE FRUITS, OR CHESTNUTSNO LATEX RISK : DO YOU HAVE A PREVIOUS PERSONAL HISTORY OF MORE THAN NINE SURGERIES, SPINA BIFIDA, OR REPEATED CATHERTIZATIONS? NO LATEX RISK : ARE YOU FREQUENTLY EXPOSED TO LATEX PRODUCTS IN YOUR OCCUPATION?NO DATE ASKED : 09/05/2018 CAFFEINE CAFFEINE USE?YES HOW OFTEN AND HOW MUCH? DAILY USE ADVANCE DIRECTIVE ADVANCE DIRECTIVE DISCUSSED WITH PATIENT:YES PT STATES SHE HAS A HCP, LIVING WILL AND POA PT. ASKED TO BRING COPIES IN FOR OUR RECORD. 10/21/18 ANABAPTIST [id number] BUDDHIST ALCOHOL SCREENING DID YOU HAVE A DRINK CONTAINING ALCOHOL IN THE PAST YEAR?YES HOW OFTEN DID YOU HAVE A DRINK CONTAINING ALCOHOL IN THE PAST YEAR?MONTHLY OR LESS (1 POINT) HOW MANY DRINKS DID YOU HAVE ON A TYPICAL DAY WHEN YOU WERE DRINKING IN THE PAST YEAR?1 OR 2 (0 POINTS) HOW OFTEN DID YOU HAVE SIX OR MORE DRINKS ON ONE OCCASION IN THE PAST YEAR?NEVER (0 POINTS) POINTS1 INTERPRETATIONNEGATIVE 04/03/18 1325 REVIEWED WITH PT. ADREVIEWED WITH PT 10/21/18 0850 BV. HOSPITALIZATION/MAJOR DIAGNOSTIC PROCEDURE SURGERIES CHILD REVIEW OF SYSTEMS REVIEWED BY: PROVIDER: . CONSTITUTIONAL: ANY CHANGE IN YOUR MEDICAL CONDITION? NO . CHILLS NO . FEVER NO . INFECTION: DO YOU HAVE NEW INFECTIONS? NO . DO YOU HAVE HISTORY OF MRSA? NO . MUSCULOSKELETAL: ANY NEW PATTERNS OF PAIN OR NUMBNESS? NO . GASTROENTEROLOGY: ANY NEW CHANGE IN BOWEL CONTROL? NO . GENITOURINARY: ANY NEW CHANGE IN BLADDER CONTROL? NO . IS THERE A CHANCE YOU COULD BE ? NO . HEMATOLOGY/LYMPH: DO YOU TAKE ANY BLOOD THINNERS? (FOR EXAMPLE- COUMADIN, PLAVIX, AGGRENOX, PLATEL, PRADAXA, OR XARELTO) NO . WHEN WAS YOUR LAST DOSE? DATE: TIME: . NEUROLOGY: HAVE YOU FALLEN IN THE PAST 12 MONTHS? PT STATES SHE HAS HAD A FEW FALLS IN THE PAST MONTH, STATES DUE TO TRIPPING, DOES NOT RECALL EXACT DATES. DENIES ANY INJURIES OR ED VISIT WITH ANY FALL . ANY NEW EXTREMITY NUMBNESS OR WEAKNESS? NO . CARDIOLOGY: DO YOU HAVE A PACEMAKER OR DEFIBRILLATOR? DORSAL COLUMN STIMULATOR . RESPIRATORY: HAVE YOU BEEN SICK IN THE PAST WEEK? NO . FEVER NO . FLU LIKE SYMPTOMS? NO . COUGH NO . INTEGUMENTARY: DO YOU HAVE ANY RASHES OR OPEN SORES? NO . ALLERGIC/IMMUNO: ARE YOU ALLERGIC TO IV DYE? NO . ANY NEW ALLERGIES? NO . PSYCHIATRIC: DO YOU HAVE THOUGHTS OF HURTING YOURSELF OR SOMEONE ELSE? NO . ARE YOU ABUSED, NEGLECTED, OR IN AN UNSAFE ENVIRONMENT? NO . ENDOCRINOLOGY: ARE YOU DIABETIC? NO . OTHER: DO YOU NEED ANY PRESCRIPTIONS? NO . IF YES, PLEASE LIST: ____ . ANY NEW PROBLEMS WITH YOUR MEDICATIONS? NO . WHEN DID YOU LAST EAT? 10/20/18 1900 . WHEN DID YOU LAST DRINK? 10/21/18 0600 . WHAT DID YOU LAST DRINK? WATER . NAME OF PERSON DRIVING YOU HOME? LIYA . DO YOU HAVE ANY OTHER QUESTIONS OR CONCERNS NO . VITAL SIGNS WT 116.4 LBS, HT 64", BMI 19.98 INDEX, BP 104/56 MM HG, HR 80 /MIN, RR 16 /MIN, TEMP 98.5 F, OXYGEN SAT % 100%, NA INITIALS SC 08:57, REVIEWED BY: BV. ASSESSMENTS INTERVERTEBRAL DISC DISORDER WITH RADICULOPATHY OF LUMBAR REGION - M51.16 (PRIMARY) PROCEDURES PRE PROCEDURE DIAGNOSIS LUMBAR DISC DISORDER WITH RADICULOPATHY POST PROCEDURE DIAGNOSIS LUMBAR DISC DISORDER WITH RADICULOPATHY PROCEDURE LUMBAR EPIDURAL STEROID INJECTION UNDER FLUOROSCOPIC GUIDANCE SURGEON DR. MCKINLEY LEBRON ZOO CARETAKER NONE ANESTHESIA LOCAL PRE PROCEDURE NOTE THE PATIENT HAS A HISTORY OF CHRONIC LOW BACK PAIN. I EVALUATE THE PATIENT AND REVIEWED THE CHART. I WENT OVER THE RISKS, ALTERNATIVES, AND BENEFITS ASSOCIATED WITH THIS PROCEDURE. THE PATIENT WOULD LIKE TO PROCEED AND GIVE CONSENT TO PERFORMED THE PROCEDURE. THE PATIENT DENIES UNEXPLAINABLE WEIGHT LOSS, FEVER, CHILLS, OR NEW CHANGES IN URINARY OR BOWEL CONTROL. DESCRIPTION OF PROCEDURE THE PATIENT WAS BROUGHT TO THE PROCEDURE ROOM AND PLACED IN THE PRONE POSITION. THE LUMBOSACRAL AREA WAS CLEANED WITH BETADINE SOLUTION AND DRAPED ASEPTICALLY. THE PROCEDURE WAS DONE UNDER STERILE CONDITIONS. I CHECKED LATERALITY AND THE LEVEL WHERE THE PROCEDURE WAS GOING TO BE PERFORMED WITH THE PATIENT AND THE SUPPORTING STAFF AT THE MOMENT OF THE TIME OUT IN THE PROCEDURE ROOM. UNDER FLUOROSCOPIC GUIDANCE, THE TARGET POINT WAS SELECTED AT THE INTERLAMINAR LEVEL OF L3-L4. LIDOCAINE WAS USED TO NUMB THE SKIN AND THE SUBCUTANEOUS TISSUE BELOW IT. EPIDURAL TUOHY NEEDLE, 17-GAUGE, WAS ADVANCED UNDER FLUOROSCOPIC GUIDANCE AND FOLLOWING PATIENT FEEDBACK UNTIL THE EPIDURAL SPACE WAS REACHED, 7 CM DEEP INTO THE SKIN BY THE LOSS OF RESISTANCE TECHNIQUE. ISOVUE M DYE 30%, 0.25 ML, WAS INJECTED SHOWING ADEQUATE SPREAD OF THE DYE. THEN, A SOLUTION OF 3 ML OF NORMAL SALINE WITH DEPO-MEDROL 60 MG WAS INJECTED SLOWLY FOLLOWING PATIENT FEEDBACK. THERE WAS NO EVIDENCE OF BLOOD, PARESTHESIA OR CEREBROSPINAL FLUID DURING THE PROCEDURE. THE PATIENT WAS SENT TO THE RECOVERY ROOM. THE PATIENT WAS MOVING THE EXTREMITIES AND DOING WELL. THERE WAS NO COMPLICATION DURING THE PROCEDURE. FLUOROSCOPY TIME WAS 27 SECONDS. POST PROCEDURE NOTE THE PATIENT WILL BE SEEN IN A FOLLOW UP IN THE NEXT FEW WEEKS. INSTRUCTIONS WERE GIVEN, QUESTIONS WERE ANSWERED, AND THE PATIENT EXPRESSED UNDERSTANDING AND AGREES WITH THE PLAN. I, TAMMIE RODRIGUEZ, DOCUMENTED THE ABOVE INFORMATION ACTING A SCRIBE FOR DR. LEBRON. I HAVE REVIEWED THE ABOVE DOCUMENT, WRITTEN BY TAMMIE PRADO AND I VERIFY THAT IT IS ACCURATE. DIAGNOSTIC IMAGING [facility] FLUORO GUIDE SPINE INJECTION (PAIN)[id number] PROCEDURE CODES 6045F RADXPS IN END [id number] [id number] LUMBAR/SACRAL W/ IMAGING DISPOSITION & COMMUNICATION FOLLOW UP 2 WEEKS ELECTRONICALLY SIGNED BY MCKINLEY LEBRON MD, MD ON 11/02/2018 AT 07:09 PM EDT DISCLAIMER : THIS IS A VISIT SUMMARY EXTRACTED FROM THE [employer] CHART. IT IS NOT A COPY OF THE [employer] PROGRESS NOTE. RADHA
== END ==
LOC: M PAIN 08:30
PROVIDERS: ATTEND Anesthesiology
DX: M51.16 Intervertebral disc disorders with radiculopathy, lumbar region (principal); K21.9 Gastro-esophageal reflux disease without esophagitis; K75.9 Inflammatory liver disease, unspecified; Z79.891 Long term (current) use of opiate analgesic; Z79.899 Other long term (current) drug therapy
CPT/HCPCS: 62323; J1030; Q9967

== ENCOUNTER → 2018-11-26 | Outpatient (CLI) | payer MEDICARE, BC ==
[~2018-11-26] MED LIST changes: -ISOVUE-M 300 61% 15ML VIAL (Q9967) As Ordered ONE; -LIDOCAINE 1% SDV INJ 30 ML VIAL As Ordered ONE; -diazePAM 5 MG TAB As Ordered ONE; -methylPREDNISolone SUSP 40 MG/ML (DEPO-medrol) VIAL (J1030) As Ordered ONE; -oxyCODONE 5MG TAB As Ordered ONE
--- NOTE | 2018-11-27 23:49 | ECWPNPC ---
PATIENT NAME: MARY KATE HAMMOND : 1955 GENDER: FEMALE VISIT DATE: 11/26/2018 DISCHARGE DATE: 11/26/18 1153 VISIT LOCKED DATE TIME: PHYSICIAN: GISSELLE DE LA TORRE RESOURCE: GISSELLE DE LA TORRE REASON FOR APPOINTMENT 1. POST PROC HISTORY OF PRESENT ILLNESS HISTORY OF PRESENT ILLNESS: PAIN THE PATIENT DESCRIBES THE PAIN... 63 YEAR OLD FEMALE IN FOR CHRONIC PAIN FOLLOW UP AND POST LESI. SHE RATES HER PAIN AT A 6/10 CURRENTLY AND FEELS THE LESI HELPED TO MANAGE HER PAIN X 4 DAYS. SHE DESCRIBES THE PAIN ACHING, SORE, TENDER, AND SHARP. SHE FEELS HER MEDICATIONS ARE WORKING TO HELP WITH HER PAIN AND DENIES MED SIDE EFFECTS. FALL RISK SCREENING: SCREENING :NO FALLS REPORTED IN THE LAST YEAR CURRENT MEDICATIONS TAKING PAXIL 10 MG TABLET 1 TABLET IN THE MORNING ORALLY ONCE A DAY TAKING CALCIUM + D 600-200 MG-UNIT TABLET 1 TABLET WITH FOOD ORALLY ONCE A DAY TAKING ROPINIROLE HCL 0.25 MG TABLET 1 TABLET 1 TO 3 HOURS BEFORE BEDTIME ORALLY ONCE A DAY TAKING GABAPENTIN 300 MG CAPSULE 2 ORALLY THREE TIMES A DAY AND MAY TAKE A 3RD CAP AT NITE MDD=7 TAKING TRAMADOL HCL 50 MG TABLET 1 TABLET NEEDED ORALLY EVERY 6 HRS PRN PAIN MDD=4 CHRONIC PAIN TAKING BACLOFEN 10 MG TABLET 1 TABLET WITH FOOD OR MILK ORALLY BEFORE BEDTIME MEDICATION LIST REVIEWED AND RECONCILED WITH THE PATIENT PAST MEDICAL HISTORY HEPATITIS ACID REFLUX NECK AND BACK PAIN ALLERGIES N.K.D.A. SURGICAL HISTORY CERVICAL DISCECTOMY C5-6 SPINAL STIMULATOR 2 C-SECTIONS APPENDECTOMY 1972 CHOLECYSTECTOMY 1988 BILARTERAL TUBAL LIGATION 1975 REVERSAL OF TUBAL 1984 FAMILY HISTORY FATHER: 62 YRS, DIAGNOSED WITH CANCER MOTHER: 83 YRS, HYPERTENSION, HEART DISEASE 3 SON(S) - HEALTHY. FATHER-STOMACH CA. SOCIAL HISTORY GENERAL: TOBACCO USE ARE YOU A: NONSMOKER. EDUCATION LEVEL OF EDUCATION:HIGH SCHOOL LANGUAGE LANGUAGES SPOKEN:SYRIAN DOMESTIC VIOLENCE DO YOU FEEL SAFE IN YOUR ENVIRONMENT?YES NEW PATIENT PAIN DIARY TODAY'S VISITNOTES RECREATIONAL DRUG USE DRUG USE?NO LEARNING BARRIERS / SPECIAL NEEDS BARRIERS TO LEARNING?NO HEARING IMPAIRED?NO VISION IMPAIRED?YES :CORRECTIVE LENSES COGNITIVELY IMPAIRED?NO READINESS TO LEARN?YES LEARNING PREFERENCES?YES :DEMONSTRATION/VERBAL INSTRUCTION LEARNING CAPABILITIES PRESENT?YES EMOTIONAL BARRIERS?NO SPECIAL DEVICES?NO ITEM REPAIR MANAGER NEEDED?NO PAIN CLINIC PFS, CLERGY, PUBLIC HEALTH REFERRALS PFS REFERRAL NEEDED?NO CLERGY REFERRAL NEEDED?NO PUBLIC HEALTH REFERRAL NEEDED?NO WAS THE PROVIDER NOTIFIED OF ANY PERTINENT INFO?YES N/A HAS THE PATIENT BEEN EDUCATED REGARDING HIS/HER PLAN OF CARE?YES HAS THE PATIENT BEEN EDUCATED REGARDING PAIN, THE RISK FOR PAIN, THE IMPORTANCE OF EFFECTIVE PAIN MANAGEMENT, AND THE PAIN ASSESSMENT PROCESS?YES LATEX QUESTIONNAIRE LATEX ALLERGY : HAVE YOU EVER DEVELOPED ANY TYPE OF REACTION AFTER HANDLING LATEX PRODUCTS SUCH RUBBER GLOVES, CONDOMS, DIAPHRAGMS, BALLOONS, SOCKS, OR UNDERWEAR?NO LATEX ALLERGY : HAVE YOU EVER DEVELOPED ANY TYPE OF REACTION DURING OR AFTER DENTAL APPOINTMENT, VAGINAL/RECTAL EXAMINATION, SURGICAL PROCEDURE, OR ANY OTHER EXPOSURE?NO LATEX RISK : HAVE YOU EVER HAD ANY DIFFICULTY BREATHING OR HIVES AFTER EATING OR HANDLING ANY FRUITS, OR VEGETABLES; SUCH KIWI, BANANAS, STONE FRUITS, OR CHESTNUTSNO LATEX RISK : DO YOU HAVE A PREVIOUS PERSONAL HISTORY OF MORE THAN NINE SURGERIES, SPINA BIFIDA, OR REPEATED CATHERIZATIONS? NO LATEX RISK : ARE YOU FREQUENTLY EXPOSED TO LATEX PRODUCTS IN YOUR OCCUPATION?NO DATE ASKED : 09/05/2018 CAFFEINE CAFFEINE USE?YES HOW OFTEN AND HOW MUCH? DAILY USE ADVANCE DIRECTIVE ADVANCE DIRECTIVE DISCUSSED WITH PATIENT:YES PT STATES SHE HAS A HCP, LIVING WILL AND POA PT. ASKED TO BRING COPIES IN FOR OUR RECORD. 10/21/18 BAPTIST [id number] MUSLIM ALCOHOL SCREENING DID YOU HAVE A DRINK CONTAINING ALCOHOL IN THE PAST YEAR?YES HOW OFTEN DID YOU HAVE A DRINK CONTAINING ALCOHOL IN THE PAST YEAR?MONTHLY OR LESS (1 POINT) HOW MANY DRINKS DID YOU HAVE ON A TYPICAL DAY WHEN YOU WERE DRINKING IN THE PAST YEAR?1 OR 2 (0 POINTS) HOW OFTEN DID YOU HAVE SIX OR MORE DRINKS ON ONE OCCASION IN THE PAST YEAR?NEVER (0 POINTS) POINTS1 INTERPRETATIONNEGATIVE 04/03/18 1325 REVIEWED WITH PT. ADREVIEWED WITH PT 10/21/18 0850 BV. HOSPITALIZATION/MAJOR DIAGNOSTIC PROCEDURE SURGERIES CHILD REVIEW OF SYSTEMS REVIEWED BY: PROVIDER: CASIE CHI . CONSTITUTIONAL: ANY CHANGE IN YOUR MEDICAL CONDITION? NO . CHILLS NO . FEVER NO . INFECTION: DO YOU HAVE NEW INFECTIONS? NO . DO YOU HAVE HISTORY OF MRSA? NO . MUSCULOSKELETAL: ANY NEW PATTERNS OF PAIN OR NUMBNESS? NO . GASTROENTEROLOGY: ANY NEW CHANGE IN BOWEL CONTROL? NO . GENITOURINARY: ANY NEW CHANGE IN BLADDER CONTROL? NO . IS THERE A CHANCE YOU COULD BE ? NO . HEMATOLOGY/LYMPH: DO YOU TAKE ANY BLOOD THINNERS? (FOR EXAMPLE- COUMADIN, PLAVIX, AGGRENOX, PLATEL, PRADAXA, OR XARELTO) NO . WHEN WAS YOUR LAST DOSE? DATE: TIME: . NEUROLOGY: HAVE YOU FALLEN IN THE PAST 12 MONTHS? NO . ANY NEW EXTREMITY NUMBNESS OR WEAKNESS? NO . CARDIOLOGY: DO YOU HAVE A PACEMAKER OR DEFIBRILLATOR? NO . RESPIRATORY: HAVE YOU BEEN SICK IN THE PAST WEEK? NO . FEVER NO . FLU LIKE SYMPTOMS? NO . COUGH NO . INTEGUMENTARY: DO YOU HAVE ANY RASHES OR OPEN SORES? NO . ALLERGIC/IMMUNO: ARE YOU ALLERGIC TO IV DYE? NO . ANY NEW ALLERGIES? NO . PSYCHIATRIC: DO YOU HAVE THOUGHTS OF HURTING YOURSELF OR SOMEONE ELSE? NO . ARE YOU ABUSED, NEGLECTED, OR IN AN UNSAFE ENVIRONMENT? NO . ENDOCRINOLOGY: ARE YOU DIABETIC? NO . OTHER: DO YOU NEED ANY PRESCRIPTIONS? BACLOFEN . IF YES, PLEASE LIST: ____ . ANY NEW PROBLEMS WITH YOUR MEDICATIONS? NO . WHEN DID YOU LAST EAT? ____ . WHEN DID YOU LAST DRINK? ____ . WHAT DID YOU LAST DRINK? ____ . NAME OF PERSON DRIVING YOU HOME? ____ . DO YOU HAVE ANY OTHER QUESTIONS OR CONCERNS NO PERHAPS NEED ADJUSTMENT WITH DORSAL COLUMN STIMULATOR . VITAL SIGNS WT 115.2 LBS, HT 64", BMI 19.77 INDEX, BP 105/61 MM HG, HR 82 /MIN, RR 16 /MIN, TEMP 97.4 F, OXYGEN SAT % 95%, NA INITIALS SC 11:12. EXAMINATION GENERAL EXAMINATION: GENERALNO ACUTE DISTRESS, WELL NOURISHED AND HYDRATED. PSYCHAPPROPRIATE MOOD AND AFFECT . LUNGS:CLEAR TO AUSCULTATION BILATERALLY, NO WHEEZES, RHONCHI, RALES. HEART:NO MURMURS, REGULAR RATE AND RHYTHM. ASSESSMENTS CERVICAL RADICULOPATHY - M54.12 (PRIMARY) INTERVERTEBRAL DISC DISORDER WITH RADICULOPATHY OF LUMBAR REGION - M51.16 CERVICAL SPONDYLOSIS - M47.812 TREATMENT CERVICAL RADICULOPATHY CLINICAL NOTES: 63 YEAR OLD FEMALE IN FOR CHRONIC PAIN FOLLOW UP. DISCUSSED POSSIBLE SAYDA WHICH WAS DECLINED AT THIS TIME BUT PATIENT WOULD LIKE TO DISCUSS IT AGAIN AT NEXT VISIT IN 2 MONTHS. PATIENT HAS EXPRESSED UNDERSTANDING OF AND WAS IN AGREEMENT WITH TX PLAN. GIVEN TIME TO ASK QUESTIONS AND EXPRESS CONCERNS. , ISTOP REGISTRY REVIEWED AND DEMONSTRATES COMPLLIANCE. (REF # ) BRINGS IN MEDICATIONS WHICH IS APPROPRIATE FOR WHAT WAS DISPENSED. RECENT URINE TOXICOLOGY REVIEWED. NO UNAUTHORIZED MEDICATIONS. NO ILLICIT SUBSTANCES AND PRESCRIBED MEDICATIONS WERE PRESENT. , RISKS AND BENEFITS OF NARCOTIC/OPIOD MEDICATIONS WERE REVIEWED WITH PATIENT - THIS INCLUDES BUT IS NOT LIMITED TO RISK OF DEPENDANCE/DEVELOPMENT OF ADDICTION, MOOD DISTURBANCE AND DEPRESSION, OSTEOPOROSIS, HORMONAL AND LABIDAL CHANGES, RESPIRATORY DEPRESSION AND . PATIENT IS ADVISED NOT TO DRIVE OR DRINK ALCOHOL WHILE ON THESE MEDICATIONS. INTERVERTEBRAL DISC DISORDER WITH RADICULOPATHY OF LUMBAR REGION CLINICAL NOTES: 63 YEAR OLD FEMALE IN FOR POST LESI FOLLOW UP. WHEN ASKED SHE ADMITS SHE DOESN'T FEEL IT WAS ALL THAT HELPFUL BUT DOES STATE SHE GOT RELIEF X 4 DAYS. DISCUSSED REPEAT LESI AND SHE WOULD LIKE TO HOLD OFF AT THIS TIME. GIVEN PRESENTING SYMPTOMS AND RESULTS OF PHYSICAL EXAMINATION RECOMMENDED FOLLOW UP IN 2 MONTHS. PATIENT HAS EXPRESSED UNDERSTANDING OF AND WAS IN AGREEMENT WITH TX PLAN. . CERVICAL SPONDYLOSIS REFILL TRAMADOL HCL TABLET, 50 MG, 1 TABLET NEEDED, ORALLY, EVERY 6 HRS PRN PAIN MDD=4 CHRONIC PAIN, 30 DAY(S), 120, REFILLS 2 REFILL BACLOFEN TABLET, 10 MG, 1 TABLET WITH FOOD OR MILK, ORALLY, BEFORE BEDTIME, 30 DAYS, 30 OTHERS REFILL ROPINIROLE HCL TABLET, 0.25 MG, 1 TABLET 1 TO 3 HOURS BEFORE BEDTIME, ORALLY, ONCE A DAY, 30 DAY(S), 30, REFILLS 2 PROCEDURE CODES FA211 ESTABILISHED PATIENT [facility] CHARGE DISPOSITION & COMMUNICATION FOLLOW UP 2 MONTHS (REASON: CHRONIC PAIN ) ELECTRONICALLY SIGNED BY KHLOE CHAPPELL ON 11/27/2018 AT 08:57 AM EDT DISCLAIMER : THIS IS A VISIT SUMMARY EXTRACTED FROM THE [employer] CHART. IT IS NOT A COPY OF THE [employer] PROGRESS NOTE. MTDD
== END ==
LOC: M PAIN 11:00
PROVIDERS: ATTEND Family Medicine
DX: M47.22 Other spondylosis with radiculopathy, cervical region (principal); M51.16 Intervertebral disc disorders with radiculopathy, lumbar region; K21.9 Gastro-esophageal reflux disease without esophagitis; Z79.891 Long term (current) use of opiate analgesic; Z79.899 Other long term (current) drug therapy; Z90.49 Acquired absence of other specified parts of digestive tract

== ENCOUNTER → 2019-01-27 | Outpatient (CLI) | payer MEDICARE, BC ==
--- NOTE | 2019-01-30 00:55 | ECWPNPC ---
PATIENT NAME: MARY KATE HAMMOND : 1955 GENDER: FEMALE VISIT DATE: 01/27/2019 DISCHARGE DATE: 01/27/19 1048 VISIT LOCKED DATE TIME: PHYSICIAN: GISSELLE DE LA TORRE RESOURCE: GISSELLE DE LA TORRE REASON FOR APPOINTMENT 1. CHRONIC PAIN HISTORY OF PRESENT ILLNESS HISTORY OF PRESENT ILLNESS: PAIN THE PATIENT DESCRIBES THE PAIN... 53-YEAR-OLD FEMALE IN FOR CHRONIC PAIN FOLLOW-UP. SHE RATES HER PAIN CURRENTLY AT A 6 OUT OF 10 AND DESCRIBES IT ACHING, BURNING, SORE, SHARP, STABBING, AND TENDER. SHE FEELS THE MEDICATIONS ARE WORKING WELL AND DENIES MED SIDE EFFECTS THIS TIME. FALL RISK SCREENING: SCREENING :NO FALLS REPORTED IN THE LAST YEAR CURRENT MEDICATIONS TAKING PAXIL 10 MG TABLET 1 TABLET IN THE MORNING ORALLY ONCE A DAY TAKING CALCIUM + D 600-200 MG-UNIT TABLET 1 TABLET WITH FOOD ORALLY ONCE A DAY TAKING GABAPENTIN 300 MG CAPSULE 2 ORALLY THREE TIMES A DAY AND MAY TAKE A 3RD CAP AT NITE MDD=7 TAKING ROPINIROLE HCL 0.25 MG TABLET 1 TABLET 1 TO 3 HOURS BEFORE BEDTIME ORALLY ONCE A DAY TAKING TRAMADOL HCL 50 MG TABLET 1 TABLET NEEDED ORALLY EVERY 6 HRS PRN PAIN MDD=4 CHRONIC PAIN TAKING BACLOFEN 10 MG TABLET 1 TABLET WITH FOOD OR MILK ORALLY BEFORE BEDTIME MEDICATION LIST REVIEWED AND RECONCILED WITH THE PATIENT PAST MEDICAL HISTORY HEPATITIS ACID REFLUX NECK AND BACK PAIN ALLERGIES N.K.D.A. SURGICAL HISTORY CERVICAL DISCECTOMY C5-6 SPINAL STIMULATOR 2 C-SECTIONS APPENDECTOMY 1972 CHOLECYSTECTOMY 1988 BILARTERAL TUBAL LIGATION 1975 REVERSAL OF TUBAL 1984 FAMILY HISTORY FATHER: 62 YRS, DIAGNOSED WITH OTHER MALIGNANT NEOPLASM OF UNSPECIFIED SITE MOTHER: 83 YRS, HYPERTENSION, UNSPECIFIED HEART DISEASE 3 SON(S) - HEALTHY. FATHER-STOMACH CA. SOCIAL HISTORY GENERAL: TOBACCO USE ARE YOU A: NONSMOKER. EDUCATION LEVEL OF EDUCATION:HIGH SCHOOL LANGUAGE LANGUAGES SPOKEN:IRAQI DOMESTIC VIOLENCE DO YOU FEEL SAFE IN YOUR ENVIRONMENT?YES NEW PATIENT PAIN DIARY TODAY'S VISITNOTES RECREATIONAL DRUG USE DRUG USE?NO LEARNING BARRIERS / SPECIAL NEEDS BARRIERS TO LEARNING?NO HEARING IMPAIRED?NO VISION IMPAIRED?YES COGNITIVELY IMPAIRED?NO :CORRECTIVE LENSES READINESS TO LEARN?YES LEARNING PREFERENCES?YES :DEMONSTRATION/VERBAL INSTRUCTION LEARNING CAPABILITIES PRESENT?YES EMOTIONAL BARRIERS?NO SPECIAL DEVICES?NO CLEANER ASSISTANT NEEDED?NO PAIN CLINIC PFS, CLERGY, PUBLIC HEALTH REFERRALS PFS REFERRAL NEEDED?NO CLERGY REFERRAL NEEDED?NO PUBLIC HEALTH REFERRAL NEEDED?NO WAS THE PROVIDER NOTIFIED OF ANY PERTINENT INFO?YES N/A HAS THE PATIENT BEEN EDUCATED REGARDING HIS/HER PLAN OF CARE?YES HAS THE PATIENT BEEN EDUCATED REGARDING PAIN, THE RISK FOR PAIN, THE IMPORTANCE OF EFFECTIVE PAIN MANAGEMENT, AND THE PAIN ASSESSMENT PROCESS?YES LATEX QUESTIONNAIRE LATEX ALLERGY : HAVE YOU EVER DEVELOPED ANY TYPE OF REACTION AFTER HANDLING LATEX PRODUCTS SUCH RUBBER GLOVES, CONDOMS, DIAPHRAGMS, BALLOONS, SOCKS, OR UNDERWEAR?NO LATEX ALLERGY : HAVE YOU EVER DEVELOPED ANY TYPE OF REACTION DURING OR AFTER DENTAL APPOINTMENT, VAGINAL/RECTAL EXAMINATION, SURGICAL PROCEDURE, OR ANY OTHER EXPOSURE?NO LATEX RISK : HAVE YOU EVER HAD ANY DIFFICULTY BREATHING OR HIVES AFTER EATING OR HANDLING ANY FRUITS, OR VEGETABLES; SUCH KIWI, BANANAS, STONE FRUITS, OR CHESTNUTSNO LATEX RISK : DO YOU HAVE A PREVIOUS PERSONAL HISTORY OF MORE THAN NINE SURGERIES, SPINA BIFIDA, OR REPEATED CATHERIZATIONS? NO LATEX RISK : ARE YOU FREQUENTLY EXPOSED TO LATEX PRODUCTS IN YOUR OCCUPATION?NO DATE ASKED : 01/27/2019 CAFFEINE CAFFEINE USE?YES HOW OFTEN AND HOW MUCH? DAILY USE ADVANCE DIRECTIVE ADVANCE DIRECTIVE DISCUSSED WITH PATIENT:YES PT STATES SHE HAS A HCP, LIVING WILL AND POA PT. ASKED TO BRING COPIES IN FOR OUR RECORD. RESTORATIONISM [id number] LATTER DAY ALCOHOL SCREENING DID YOU HAVE A DRINK CONTAINING ALCOHOL IN THE PAST YEAR?YES HOW OFTEN DID YOU HAVE SIX OR MORE DRINKS ON ONE OCCASION IN THE PAST YEAR?NEVER (0 POINTS) HOW MANY DRINKS DID YOU HAVE ON A TYPICAL DAY WHEN YOU WERE DRINKING IN THE PAST YEAR?1 OR 2 (0 POINTS) HOW OFTEN DID YOU HAVE A DRINK CONTAINING ALCOHOL IN THE PAST YEAR?MONTHLY OR LESS (1 POINT) POINTS1 INTERPRETATIONNEGATIVE 04/03/18 1325 REVIEWED WITH PT. ADREVIEWED WITH PT 10/21/18 0854 BV. HOSPITALIZATION/MAJOR DIAGNOSTIC PROCEDURE SURGERIES CHILD REVIEW OF SYSTEMS REVIEWED BY: PROVIDER: CASIE CHI . CONSTITUTIONAL: ANY CHANGE IN YOUR MEDICAL CONDITION? NO . CHILLS NO . FEVER NO . INFECTION: DO YOU HAVE NEW INFECTIONS? NO . DO YOU HAVE HISTORY OF MRSA? NO . MUSCULOSKELETAL: ANY NEW PATTERNS OF PAIN OR NUMBNESS? NO . GASTROENTEROLOGY: ANY NEW CHANGE IN BOWEL CONTROL? NO . GENITOURINARY: ANY NEW CHANGE IN BLADDER CONTROL? NO . IS THERE A CHANCE YOU COULD BE ? NO . HEMATOLOGY/LYMPH: DO YOU TAKE ANY BLOOD THINNERS? (FOR EXAMPLE- COUMADIN, PLAVIX, AGGRENOX, PLATEL, PRADAXA, OR XARELTO) NO . WHEN WAS YOUR LAST DOSE? DATE: TIME: . NEUROLOGY: HAVE YOU FALLEN IN THE PAST 12 MONTHS? YES, PT STATES THAT SHE WAS HOME WHEN SHE FELL, TRIPPED, NO INJURY. DS . ANY NEW EXTREMITY NUMBNESS OR WEAKNESS? NO . CARDIOLOGY: DO YOU HAVE A PACEMAKER OR DEFIBRILLATOR? NO . RESPIRATORY: HAVE YOU BEEN SICK IN THE PAST WEEK? YES, COUGH, RESOLVED. . FEVER NO . FLU LIKE SYMPTOMS? NO . COUGH NO . INTEGUMENTARY: DO YOU HAVE ANY RASHES OR OPEN SORES? NO . ALLERGIC/IMMUNO: ARE YOU ALLERGIC TO IV DYE? NO . ANY NEW ALLERGIES? NO . PSYCHIATRIC: DO YOU HAVE THOUGHTS OF HURTING YOURSELF OR SOMEONE ELSE? NO . ARE YOU ABUSED, NEGLECTED, OR IN AN UNSAFE ENVIRONMENT? NO . ENDOCRINOLOGY: ARE YOU DIABETIC? NO . OTHER: DO YOU NEED ANY PRESCRIPTIONS? YES, BACLOFEN . IF YES, PLEASE LIST: ____ . ANY NEW PROBLEMS WITH YOUR MEDICATIONS? NO . WHEN DID YOU LAST EAT? ____ . WHEN DID YOU LAST DRINK? ____ . WHAT DID YOU LAST DRINK? ____ . NAME OF PERSON DRIVING YOU HOME? ____ . DO YOU HAVE ANY OTHER QUESTIONS OR CONCERNS NO . VITAL SIGNS WT 119 LBS, HT 64", BMI 20.42 INDEX, BP 104/61 MM HG, HR 86 /MIN, RR 16 /MIN, TEMP 96.0 F, OXYGEN SAT % 98%, SAFE IN ENV? (Y/N) Y, NA INITIALS AW 1012, REVIEWED BY: DS. EXAMINATION GENERAL EXAMINATION: GENERALNO ACUTE DISTRESS, WELL NOURISHED AND HYDRATED. PSYCHAPPROPRIATE MOOD AND AFFECT . LUNGS:CLEAR TO AUSCULTATION BILATERALLY, NO WHEEZES, RHONCHI, RALES. HEART:NO MURMURS, REGULAR RATE AND RHYTHM. ASSESSMENTS SPONDYLOSIS WITHOUT MYELOPATHY OR RADICULOPATHY, CERVICAL REGION - M47.812 (PRIMARY) INTERVERTEBRAL DISC DISORDER WITH RADICULOPATHY OF LUMBAR REGION - M51.16 TREATMENT SPONDYLOSIS WITHOUT MYELOPATHY OR RADICULOPATHY, CERVICAL REGION REFILL ROPINIROLE HCL TABLET, 0.25 MG, 1 TABLET 1 TO 3 HOURS BEFORE BEDTIME, ORALLY, ONCE A DAY, 30 DAY(S), 30, REFILLS 2 REFILL BACLOFEN TABLET, 10 MG, 1 TABLET WITH FOOD OR MILK, ORALLY, BEFORE BEDTIME, 30 DAYS, 30, REFILLS 2 CLINICAL NOTES: 63-YEAR-OLD FEMALE IN FOR CHRONIC PAIN FOLLOW-UP. GIVEN PRESENTING SYMPTOMS AND RESULTS OF PHYSICAL EXAMINATION RECOMMENDED CONTINUATION OF CURRENT MEDICATION REGIMEN WITH FOLLOW-UP IN 3 MONTHS. PATIENT HAS EXPRESSED UNDERSTANDING OF AND WAS IN AGREEMENT WITH TREATMENT PLAN. GIVEN TIME TO ASK QUESTIONS AND EXPRESS CONCERNS., ISTOP REGISTRY REVIEWED AND DEMONSTRATES COMPLLIANCE. (REF # [id number] ) BRINGS IN MEDICATIONS WHICH IS APPROPRIATE FOR WHAT WAS DISPENSED. RECENT URINE TOXICOLOGY REVIEWED. NO UNAUTHORIZED MEDICATIONS. NO ILLICIT SUBSTANCES AND PRESCRIBED MEDICATIONS WERE PRESENT. , RISKS AND BENEFITS OF NARCOTIC/OPIOD MEDICATIONS WERE REVIEWED WITH PATIENT - THIS INCLUDES BUT IS NOT LIMITED TO RISK OF DEPENDANCE/DEVELOPMENT OF ADDICTION, MOOD DISTURBANCE AND DEPRESSION, OSTEOPOROSIS, HORMONAL AND LABIDAL CHANGES, RESPIRATORY DEPRESSION AND . PATIENT IS ADVISED NOT TO DRIVE OR DRINK ALCOHOL WHILE ON THESE MEDICATIONS. PROCEDURE CODES FA211 ESTABILISHED PATIENT [facility] CHARGE DISPOSITION & COMMUNICATION FOLLOW UP 3 MONTHS (REASON: CHRONIC PAIN) ELECTRONICALLY SIGNED BY KHLOE CHAPPELL ON 01/29/2019 AT 08:27 AM EDT DISCLAIMER : THIS IS A VISIT SUMMARY EXTRACTED FROM THE [employer] CHART. IT IS NOT A COPY OF THE [employer] PROGRESS NOTE. RADHA
== END ==
LOC: M PAIN 10:15
PROVIDERS: ATTEND Family Medicine
DX: M47.812 Spondylosis without myelopathy or radiculopathy, cervical region (principal); M51.16 Intervertebral disc disorders with radiculopathy, lumbar region; Z86.19 Personal history of other infectious and parasitic diseases; Z79.899 Other long term (current) drug therapy

== ENCOUNTER → 2019-01-28 | Outpatient (CLI) | payer MEDICARE, BC ==
--- NOTE | 2019-01-28 13:38 | REP ---
BILATERAL SCREENING DIGITAL MAMMOGRAM WITH 3D TOMOSYNTHESIS: There are no palpable abnormalities or other breast complaints. The the patient states she is not had a clinical breast examination in over a year. The the patient states she performs self-breast examinations 12 times per year. The Tyrer-Cuzick Score is: 12.4% . Comparisons are 10/31/2011 and 08/03/2016. There are scattered areas of fibroglandular density. There is a new 5 mm nodular density anteriorly in the left breast on the MLO view and on the MLO tomosynthesis but not identified on the CC view or the CC tomosynthesis. There are no focal suspicious findings in the right breast. Impression: BIRADS/ACR category 0 mammogram. Incomplete, additional imaging evaluation is needed. Recommendation: The patient should return for spot compression views and ultrasound of the left breast. This mammogram was interpreted with the aid of a FDA approved computer-aided detection system. A. Negative mammogram reports should not delay biopsy if a dominant or clinically suspicious mass is present. B. Not all breast cancers are identified by mammography or tomosynthesis. C. Adenosis and dense breasts may obscure an underlying neoplasm. Patient letter M0. Electronically Signed by Perfecto Barnard MD 01/28/2019 01:30 P
--- NOTE | 2019-01-29 15:56 | DEXA ---
AP SPINE L1 - L4 0.909 -2.3 -0.7 LT FEMUR TOTAL 0.664 -2.7 -1.5 LT NECK 0.680 -2.6 -1.1 RT FEMUR TOTAL 0.697 -2.5 -1.2 RT NECK 0.716 -2.3 -0.8 TOTAL BODY TOTAL OTHER COMMENTS: There is low bone density of the spine. There is low bone density of the right hip. There is osteoporosis of the left hip. The density of the spine has decreased 14.8% since the initial exam on 09/20/2003. The spine density has decreased 2.2% since most recent exam on 09/28/2016. The density of the left hip has decreased 18.4% since the initial exam on 09/20/2003. The density of the left hip has decreased 2.1% since the most recent exam on 09/28/2016. The density of the right hip has decreased 17.1% since the initial exam on 09/20/2003. The density of the right hip has decreased 2.0% since the most recent exam on 09/28/2016. FOLLOW-UP: Recommendation for the next bone density exam: 2 years. RADHA
== END ==
LOC: M WHC 10:43
PROVIDERS: ATTEND Advanced Practice Midwife
DX: Z12.31 Encounter for screening mammogram for malignant neoplasm of breast (principal); N95.8 Other specified menopausal and perimenopausal disorders; N63.20 Unspecified lump in the left breast, unspecified quadrant; M81.0 Age-related osteoporosis without current pathological fracture; M85.88 Other specified disorders of bone density and structure, other site; M85.851 Other specified disorders of bone density and structure, right thigh

== ENCOUNTER → 2019-02-13 | Outpatient (CLI) | payer MEDICARE, BC ==
--- NOTE | 2019-02-13 13:34 | REP ---
DIAGNOSTIC MAMMOGRAM OF THE LEFT BREAST WITH LEFT BREAST ULTRASOUND: Spot compression views of the left breast performed as well as a left ML tomosynthesis sequence. Correlation is made with recent mammogram of 01/28/2019 which suggested a subcentimeter nodule in the lateral retroareolar region, only seen on the MLO view. This nodular density appears to compress out to an unchanged appearance when compared to the other prior exams. I do not see a persistent nodule in the left retroareolar region. Real-time sonographic evaluation of the left retroareolar region is performed with special attention paid to the lateral retroareolar region. No cystic or solid nodule is seen in this region. IMPRESSION: BIRADS 2: BI-RADS/ACR category 2 mammogram. Benign Findings. Suspected 5 mm left retroareolar nodule compresses out to a normal fibroglandular appearance with no persistent nodule mammographically. There is no sonographic evidence of cystic or solid nodule as well. The findings are ACR 2 benign. Recommend followup mammogram in 1 year. The patient letter being requested is M1. Electronically Signed by Perfecto Hannon MD 02/17/2019 08:50 A
== END ==
LOC: M RAD 11:56
PROVIDERS: ATTEND Advanced Practice Midwife
DX: Z12.31 Encounter for screening mammogram for malignant neoplasm of breast (principal); Z80.3 Family history of malignant neoplasm of breast

== ENCOUNTER → 2019-05-04 | Outpatient (CLI) | payer MEDICARE, BC ==
--- NOTE | 2019-05-08 00:32 | ECWPNPC ---
PATIENT NAME: MARY KATE HAMMOND : 1955 GENDER: FEMALE VISIT DATE: 05/04/2019 DISCHARGE DATE: 05/04/19 1445 VISIT LOCKED DATE TIME: PHYSICIAN: GISSELLE DE LA TORRE RESOURCE: GISSELLE DE LA TORRE REASON FOR APPOINTMENT 1. CHRONIC PAIN HISTORY OF PRESENT ILLNESS HISTORY OF PRESENT ILLNESS: PAIN THE PATIENT DESCRIBES THE PAIN... 64-YEAR-OLD FEMALE IN FOR CHRONIC PAIN FOLLOW-UP. SHE RATES HER PAIN CURRENTLY AT A 3 OUT OF 10 AND DESCRIBES IT ACHING, STABBING, SHOOTING, AND TENDER. SHE FEELS THE MEDICATIONS ARE WORKING WELL AND DENIES MED SIDE EFFECTS AT THIS TIME. SHE WOULD LIKE TO DISCUSS POTENTIAL REFERRAL FOR MEDICAL MARIJUANA. FALL RISK SCREENING: SCREENING :NO FALLS REPORTED IN THE LAST YEAR CURRENT MEDICATIONS TAKING PAXIL 10 MG TABLET 1 TABLET IN THE MORNING ORALLY ONCE A DAY TAKING CALCIUM + D 600-200 MG-UNIT TABLET 1 TABLET WITH FOOD ORALLY ONCE A DAY TAKING GABAPENTIN 300 MG CAPSULE 2 ORALLY THREE TIMES A DAY AND MAY TAKE A 3RD CAP AT NITE MDD=7 TAKING TRAMADOL HCL 50 MG TABLET 1 TABLET NEEDED ORALLY EVERY 6 HRS PRN PAIN MDD=4 CHRONIC PAIN TAKING ROPINIROLE HCL 0.25 MG TABLET 1 TABLET 1 TO 3 HOURS BEFORE BEDTIME ORALLY ONCE A DAY TAKING BACLOFEN 10 MG TABLET 1 TABLET WITH FOOD OR MILK ORALLY BEFORE BEDTIME TAKING MIRAPEX 0.25 MG TABLET 2 TABLETS ORALLY ONCE A DAY, NOTES: UNSURE OF DOSE NOT-TAKING MIRAPEX ER 1.5 MG TABLET EXTENDED RELEASE 24 HOUR 1 TABLET ORALLY ONCE A DAY MEDICATION LIST REVIEWED AND RECONCILED WITH THE PATIENT PAST MEDICAL HISTORY HEPATITIS ACID REFLUX NECK AND BACK PAIN RESTLESS LEG SYNDROME FIBROMYALGIA ALLERGIES N.K.D.A. SURGICAL HISTORY CERVICAL DISCECTOMY C5-6 1994 SPINAL STIMULATOR 2 C-SECTIONS 1983,1974 APPENDECTOMY 1972 CHOLECYSTECTOMY 1988 BILARTERAL TUBAL LIGATION 1974 REVERSAL OF TUBAL 1984 FAMILY HISTORY FATHER: 62 YRS, DIAGNOSED WITH OTHER MALIGNANT NEOPLASM OF UNSPECIFIED SITE MOTHER: 83 YRS, HYPERTENSION, UNSPECIFIED HEART DISEASE 3 SON(S) - HEALTHY. FATHER-STOMACH CA. SOCIAL HISTORY GENERAL: TOBACCO USE ARE YOU A: NONSMOKER. EDUCATION LEVEL OF EDUCATION:HIGH SCHOOL LANGUAGE LANGUAGES SPOKEN:HUNGARIAN DOMESTIC VIOLENCE DO YOU FEEL SAFE IN YOUR ENVIRONMENT?YES NEW PATIENT PAIN DIARY TODAY'S VISITNOTES RECREATIONAL DRUG USE DRUG USE?NO LEARNING BARRIERS / SPECIAL NEEDS BARRIERS TO LEARNING?NO HEARING IMPAIRED?NO VISION IMPAIRED?YES COGNITIVELY IMPAIRED?NO :CORRECTIVE LENSES READINESS TO LEARN?YES LEARNING PREFERENCES?YES :DEMONSTRATION/VERBAL INSTRUCTION LEARNING CAPABILITIES PRESENT?YES EMOTIONAL BARRIERS?NO SPECIAL DEVICES?NO BEAM DYER RECESSED VAT NEEDED?NO PAIN CLINIC PFS, CLERGY, PUBLIC HEALTH REFERRALS PFS REFERRAL NEEDED?NO CLERGY REFERRAL NEEDED?NO PUBLIC HEALTH REFERRAL NEEDED?NO WAS THE PROVIDER NOTIFIED OF ANY PERTINENT INFO?YES N/A HAS THE PATIENT BEEN EDUCATED REGARDING HIS/HER PLAN OF CARE?YES HAS THE PATIENT BEEN EDUCATED REGARDING PAIN, THE RISK FOR PAIN, THE IMPORTANCE OF EFFECTIVE PAIN MANAGEMENT, AND THE PAIN ASSESSMENT PROCESS?YES LATEX QUESTIONNAIRE LATEX ALLERGY : HAVE YOU EVER DEVELOPED ANY TYPE OF REACTION AFTER HANDLING LATEX PRODUCTS SUCH RUBBER GLOVES, CONDOMS, DIAPHRAGMS, BALLOONS, SOCKS, OR UNDERWEAR?NO LATEX ALLERGY : HAVE YOU EVER DEVELOPED ANY TYPE OF REACTION DURING OR AFTER DENTAL APPOINTMENT, VAGINAL/RECTAL EXAMINATION, SURGICAL PROCEDURE, OR ANY OTHER EXPOSURE?NO DATE ASKED : 01/27/2019 LATEX RISK : HAVE YOU EVER HAD ANY DIFFICULTY BREATHING OR HIVES AFTER EATING OR HANDLING ANY FRUITS, OR VEGETABLES; SUCH KIWI, BANANAS, STONE FRUITS, OR CHESTNUTSNO LATEX RISK : DO YOU HAVE A PREVIOUS PERSONAL HISTORY OF MORE THAN NINE SURGERIES, SPINA BIFIDA, OR REPEATED CATHERIZATIONS? NO LATEX RISK : ARE YOU FREQUENTLY EXPOSED TO LATEX PRODUCTS IN YOUR OCCUPATION?NO CAFFEINE CAFFEINE USE?YES HOW OFTEN AND HOW MUCH? DAILY USE ADVANCE DIRECTIVE ADVANCE DIRECTIVE DISCUSSED WITH PATIENT:YES PT STATES SHE HAS A HCP LIYA HAMMOND [phone], LIVING WILL AND POA PT. ASKED TO BRING COPIES IN FOR OUR RECORD. MORMON [id number] GNOSTICIST ALCOHOL SCREENING DID YOU HAVE A DRINK CONTAINING ALCOHOL IN THE PAST YEAR?YES HOW OFTEN DID YOU HAVE SIX OR MORE DRINKS ON ONE OCCASION IN THE PAST YEAR?NEVER (0 POINTS) HOW MANY DRINKS DID YOU HAVE ON A TYPICAL DAY WHEN YOU WERE DRINKING IN THE PAST YEAR?1 OR 2 (0 POINTS) HOW OFTEN DID YOU HAVE A DRINK CONTAINING ALCOHOL IN THE PAST YEAR?MONTHLY OR LESS (1 POINT) POINTS1 INTERPRETATIONNEGATIVE 04/03/18 1325 REVIEWED WITH PT. ADREVIEWED WITH PT 10/21/18 9245 BV. HOSPITALIZATION/MAJOR DIAGNOSTIC PROCEDURE SURGERIES CHILD REVIEW OF SYSTEMS REVIEWED BY: PROVIDER: CHRISTOPHER BRITT [employer] EQUIPMENT INSTALLER-C . CONSTITUTIONAL: ANY CHANGE IN YOUR MEDICAL CONDITION? NO . CHILLS NO . FEVER NO . INFECTION: DO YOU HAVE NEW INFECTIONS? YES . DO YOU HAVE HISTORY OF MRSA? NO . MUSCULOSKELETAL: ANY NEW PATTERNS OF PAIN OR NUMBNESS? NO . GASTROENTEROLOGY: ANY NEW CHANGE IN BOWEL CONTROL? NO . GENITOURINARY: ANY NEW CHANGE IN BLADDER CONTROL? NO . IS THERE A CHANCE YOU COULD BE ? NO . HEMATOLOGY/LYMPH: DO YOU TAKE ANY BLOOD THINNERS? (FOR EXAMPLE- COUMADIN, PLAVIX, AGGRENOX, PLATEL, PRADAXA, OR XARELTO) NO . WHEN WAS YOUR LAST DOSE? DATE: TIME: . NEUROLOGY: HAVE YOU FALLEN IN THE PAST 12 MONTHS? NO . ANY NEW EXTREMITY NUMBNESS OR WEAKNESS? NO . CARDIOLOGY: DO YOU HAVE A PACEMAKER OR DEFIBRILLATOR? NO . RESPIRATORY: HAVE YOU BEEN SICK IN THE PAST WEEK? YES . FEVER NO . FLU LIKE SYMPTOMS? NO . COUGH YES . INTEGUMENTARY: DO YOU HAVE ANY RASHES OR OPEN SORES? NO . ALLERGIC/IMMUNO: ARE YOU ALLERGIC TO IV DYE? NO . ANY NEW ALLERGIES? NO . PSYCHIATRIC: DO YOU HAVE THOUGHTS OF HURTING YOURSELF OR SOMEONE ELSE? NO . ARE YOU ABUSED, NEGLECTED, OR IN AN UNSAFE ENVIRONMENT? NO . ENDOCRINOLOGY: ARE YOU DIABETIC? NO . OTHER: DO YOU NEED ANY PRESCRIPTIONS? YES . IF YES, PLEASE LIST: TRAMADOL, BACLOFEN . ANY NEW PROBLEMS WITH YOUR MEDICATIONS? NO . WHEN DID YOU LAST EAT? ____ . WHEN DID YOU LAST DRINK? ____ . WHAT DID YOU LAST DRINK? ____ . NAME OF PERSON DRIVING YOU HOME? ____ . DO YOU HAVE ANY OTHER QUESTIONS OR CONCERNS YES - MEDICAL MARIJUANA . VITAL SIGNS WT 119 LBS, HT 64", BMI 20.42 INDEX, BP 117/68 MM HG, HR 87 /MIN, RR 16 /MIN, TEMP 98.5 F, OXYGEN SAT % 98%, NA INITIALS SC 13:59, REVIEWED BY: ASUNCION. EXAMINATION GENERAL EXAMINATION: GENERALNO ACUTE DISTRESS, WELL NOURISHED AND HYDRATED. PSYCHAPPROPRIATE MOOD AND AFFECT . LUNGS:CLEAR TO AUSCULTATION BILATERALLY, NO WHEEZES, RHONCHI, RALES. HEART:NO MURMURS, REGULAR RATE AND RHYTHM. ASSESSMENTS SPONDYLOSIS WITHOUT MYELOPATHY OR RADICULOPATHY, CERVICAL REGION - M47.812 (PRIMARY) TREATMENT SPONDYLOSIS WITHOUT MYELOPATHY OR RADICULOPATHY, CERVICAL REGION REFILL BACLOFEN TABLET, 10 MG, 1 TABLET WITH FOOD OR MILK, ORALLY, BEFORE BEDTIME, 90 DAYS, 90, REFILLS 2 REFILL TRAMADOL HCL TABLET, 50 MG, 1 TABLET NEEDED, ORALLY, EVERY 6 HRS PRN PAIN MDD=4 CHRONIC PAIN, 30 DAY(S), 120, REFILLS 2 CLINICAL NOTES: 64-YEAR-OLD FEMALE IN FOR CHRONIC PAIN FOLLOW-UP. GIVEN PRESENTING SYMPTOMS AND RESULTS OF PHYSICAL EXAMINATION RECOMMENDED CONTINUATION OF CURRENT MEDICATION REGIMEN WITH FOLLOW-UP IN 3 MONTHS. DISCUSSED POTENTIAL REFERRAL FOR MEDICAL MARIJUANA AND AT THIS TIME PATIENT HAS TAKEN INFORMATION REGARDING MEDICAL MARIJUANA AND IT WILL BE DISCUSSED AGAIN AT NEXT CLINIC VISIT. PATIENT HAS EXPRESSED UNDERSTANDING OF AND WAS IN AGREEMENT WITH TREATMENT PLAN. GIVEN TIME TO ASK QUESTIONS AND EXPRESS CONCERNS., ISTOP REGISTRY REVIEWED AND DEMONSTRATES COMPLLIANCE. (REF # [id number] ) BRINGS IN MEDICATIONS WHICH IS APPROPRIATE FOR WHAT WAS DISPENSED. RECENT URINE TOXICOLOGY REVIEWED. NO UNAUTHORIZED MEDICATIONS. NO ILLICIT SUBSTANCES AND PRESCRIBED MEDICATIONS WERE PRESENT. PROCEDURE CODES FA211 ESTABILISHED PATIENT [facility] CHARGE DISPOSITION & COMMUNICATION FOLLOW UP 3 MONTHS (REASON: BACK PAIN) ELECTRONICALLY SIGNED BY KHLOE CHAPPELL ON 05/07/2019 AT 08:57 AM EST DISCLAIMER : THIS IS A VISIT SUMMARY EXTRACTED FROM THE [employer] CHART. IT IS NOT A COPY OF THE [employer] PROGRESS NOTE. RADHA
== END ==
LOC: M PAIN 14:15
PROVIDERS: ATTEND Family Medicine
DX: M47.812 Spondylosis without myelopathy or radiculopathy, cervical region (principal)

== ENCOUNTER → 2019-10-01 | Outpatient (CLI) | payer MEDICARE, BC ==
--- NOTE | 2019-10-03 03:14 | ECWPNPC ---
PATIENT NAME: MARY KATE HAMMOND : 1955 GENDER: FEMALE VISIT DATE: 10/01/2019 DISCHARGE DATE: 10/01/19 1414 VISIT LOCKED DATE TIME: PHYSICIAN: GISSELLE DE LA TORRE RESOURCE: GISSELLE DE LA TORRE REASON FOR APPOINTMENT 1. 3 MONTHS-LEIA@[employer] PHONE PAT COMPLETED HISTORY OF PRESENT ILLNESS DEPRESSION SCREENING: PHQ-2 (2015 EDITION) LITTLE INTEREST OR PLEASURE IN DOING THINGS?NOT AT ALL FEELING DOWN, DEPRESSED, OR HOPELESS?NOT AT ALL TOTAL SCORE0 PERMISSION REQUESTED AND RECEIVED FROM PATIENT TO PERFORM TELEHEALTH VISIT. 64-YEAR-OLD FEMALE IN FOR CHRONIC PAIN FOLLOW-UP. SHE RATES HER PAIN CURRENTLY AT AN 8 OUT OF 10 AND DESCRIBES IT STABBING. SHE FEELS THE INCREASE IN PAIN IS RELATED TO DOING MORE RECENTLY. SHE DOES FEEL MEDICATIONS ARE HELPFUL AND DENIES MED SIDE EFFECTS AT THIS TIME. GENERAL: -. FALL RISK SCREENING: SCREENING :NO FALLS REPORTED IN THE LAST YEAR PAIN SCREENING: PATIENT HAS A COMPLAINT OF ACUTE OR CHRONIC PAIN :YES LOCATION OF PAIN:NECK, BOTH SHOULDERS, LOW BACK FIBROMYALGIA, PT REPORTS PAIN IS IN BOTH ARMS, LEFT >RIGHT, AND RESTLESS LEGS AT NIGHT INTENSITY OF PAIN (SCALE OF 1 TO 10):6 WHAT DOES YOUR PAIN FEEL LIKE:ACHING, CONTINOUS DURATION:CONTINOUS, CONSTANT PAIN IS INREASED BY:ACTIVITIES RESTLESS LEGS AT NIGHT PAIN IS DECREASED BY:USE OF PAIN MEDICATIONS PLAN/GOALS/TREATMENT/INTERVENTION/FOLLOW UP:SEE PLAN NURSING NOTE: -. PAIN CENTER INTAKE QUESTIONS: DO YOU HAVE A HISTORY OF MRSA? :NO DO YOU TAKE A BLOOD THINNERS? :NO DO YOU HAVE ANY BLEEDING DISORDERS? :NO ANY NEW NUMBNESS OR WEAKNESS IN YOUR LEGS OR ARMS? :YES PT REPORTS THAT THE NUMBNESS IN BOTH HANDS IS GETTING WORSE,, STATES IT IS REALLY BAD WHEN DRIVING ANY PACEMAKER,DEFIBRILLATOR, OR DORSAL COLUMN STIMULATOR? :YES DORSAL COLUMN STIMULATOR DO YOU HAVE ANY RASHES OR OPEN SORES? :NO ARE YOU ALLERGIC TO IV DYE? :NO ARE YOU DIABETIC? :NO ANY NEW PROBLEMS WITH YOUR MEDICATIONS? :NO HAVE YOU RECEIVED A VACCINE IN THE PAST 30 DAYS? :NO DO YOU PLAN TO RECEIVE A VACCINE IN THE NEXT 21 DAYS? :NO DO YOU NEED ANY PRESCRIPTION? :YES TRAMADOL DO YOU TAKE ANY IMMUNOSUPPRESSIVE MEDICATIONS? :NO CURRENT MEDICATIONS TAKING PAXIL 10 MG TABLET 1 TABLET IN THE MORNING ORALLY ONCE A DAY TAKING CALCIUM + D 600-200 MG-UNIT TABLET 1 TABLET WITH FOOD ORALLY ONCE A DAY TAKING GABAPENTIN 300 MG CAPSULE 2 ORALLY THREE TIMES A DAY AND MAY TAKE A 3RD CAP AT NITE MDD=7 TAKING MIRAPEX 0.25 MG TABLET 2 TABLETS ORALLY ONCE A DAY, NOTES: UNSURE OF DOSE TAKING BACLOFEN 10 MG TABLET 1 TABLET WITH FOOD OR MILK ORALLY BEFORE BEDTIME TAKING TRAMADOL HCL 50 MG TABLET 1 TABLET NEEDED ORALLY EVERY 6 HRS PRN PAIN MDD=4 CHRONIC PAIN TAKING FAMOTIDINE 40 MG TABLET 1 TABLET AT BEDTIME ORALLY ONCE A DAY NOT-TAKING ROPINIROLE HCL 0.25 MG TABLET 1 TABLET 1 TO 3 HOURS BEFORE BEDTIME ORALLY ONCE A DAY NOT-TAKING MIRAPEX ER 1.5 MG TABLET EXTENDED RELEASE 24 HOUR 1 TABLET ORALLY ONCE A DAY MEDICATION LIST REVIEWED AND RECONCILED WITH THE PATIENT PAST MEDICAL HISTORY HEPATITIS ACID REFLUX NECK AND BACK PAIN RESTLESS LEG SYNDROME FIBROMYALGIA ALLERGIES N.K.D.A. SURGICAL HISTORY CERVICAL DISCECTOMY C5-6 1994 SPINAL STIMULATOR 2 C-SECTIONS 1983,1974 APPENDECTOMY 1971 CHOLECYSTECTOMY 1988 BILARTERAL TUBAL LIGATION 1974 REVERSAL OF TUBAL 1984 FAMILY HISTORY FATHER: 62 YRS, DIAGNOSED WITH OTHER MALIGNANT NEOPLASM OF UNSPECIFIED SITE MOTHER: 83 YRS, UNSPECIFIED HEART DISEASE, HYPERTENSION 3 SON(S) - HEALTHY. FATHER-STOMACH CA. SOCIAL HISTORY GENERAL: TOBACCO USE ARE YOU A: NONSMOKER. LATEX QUESTIONNAIRE LATEX ALLERGY : HAVE YOU EVER DEVELOPED ANY TYPE OF REACTION AFTER HANDLING LATEX PRODUCTS SUCH RUBBER GLOVES, CONDOMS, DIAPHRAGMS, BALLOONS, SOCKS, OR UNDERWEAR?NO LATEX ALLERGY : HAVE YOU EVER DEVELOPED ANY TYPE OF REACTION DURING OR AFTER DENTAL APPOINTMENT, VAGINAL/RECTAL EXAMINATION, SURGICAL PROCEDURE, OR ANY OTHER EXPOSURE?NO DATE ASKED : 01/27/2019 LATEX RISK : HAVE YOU EVER HAD ANY DIFFICULTY BREATHING OR HIVES AFTER EATING OR HANDLING ANY FRUITS, OR VEGETABLES; SUCH KIWI, BANANAS, STONE FRUITS, OR CHESTNUTSNO LATEX RISK : DO YOU HAVE A PREVIOUS PERSONAL HISTORY OF MORE THAN NINE SURGERIES, SPINA BIFIDA, OR REPEATED CATHERIZATIONS? NO LATEX RISK : ARE YOU FREQUENTLY EXPOSED TO LATEX PRODUCTS IN YOUR OCCUPATION?NO ALCOHOL SCREENING DID YOU HAVE A DRINK CONTAINING ALCOHOL IN THE PAST YEAR?YES HOW OFTEN DID YOU HAVE SIX OR MORE DRINKS ON ONE OCCASION IN THE PAST YEAR?NEVER (0 POINTS) HOW MANY DRINKS DID YOU HAVE ON A TYPICAL DAY WHEN YOU WERE DRINKING IN THE PAST YEAR?1 OR 2 (0 POINTS) HOW OFTEN DID YOU HAVE A DRINK CONTAINING ALCOHOL IN THE PAST YEAR?MONTHLY OR LESS (1 POINT) POINTS1 INTERPRETATIONNEGATIVE RECREATIONAL DRUG USE DRUG USE?NO CAFFEINE CAFFEINE USE?YES HOW OFTEN AND HOW MUCH? DAILY USE SIKHISM [id number] NONDENOMINATIONAL LANGUAGE LANGUAGES SPOKEN:SYRIAC EDUCATION LEVEL OF EDUCATION:HIGH SCHOOL LEARNING BARRIERS / SPECIAL NEEDS BARRIERS TO LEARNING?NO HEARING IMPAIRED?NO VISION IMPAIRED?YES COGNITIVELY IMPAIRED?NO :CORRECTIVE LENSES READINESS TO LEARN?YES LEARNING PREFERENCES?YES :DEMONSTRATION/VERBAL INSTRUCTION LEARNING CAPABILITIES PRESENT?YES EMOTIONAL BARRIERS?NO SPECIAL DEVICES?NO COMMISSION SPECIALIST NEEDED?NO DOMESTIC VIOLENCE DO YOU FEEL SAFE IN YOUR ENVIRONMENT?YES NEW PATIENT PAIN DIARY TODAY'S VISIT NOTES. PAIN CLINIC PFS, CLERGY, PUBLIC HEALTH REFERRALS PFS REFERRAL NEEDED?NO CLERGY REFERRAL NEEDED?NO PUBLIC HEALTH REFERRAL NEEDED?NO WAS THE PROVIDER NOTIFIED OF ANY PERTINENT INFO?YES N/A HAS THE PATIENT BEEN EDUCATED REGARDING HIS/HER PLAN OF CARE?YES HAS THE PATIENT BEEN EDUCATED REGARDING PAIN, THE RISK FOR PAIN, THE IMPORTANCE OF EFFECTIVE PAIN MANAGEMENT, AND THE PAIN ASSESSMENT PROCESS?YES ADVANCE DIRECTIVE ADVANCE DIRECTIVE DISCUSSED WITH PATIENT:YES PT STATES SHE HAS A HCP LIYA HAMMOND [phone], LIVING WILL AND POA PT. ASKED TO BRING COPIES IN FOR OUR RECORD. HOSPITALIZATION/MAJOR DIAGNOSTIC PROCEDURE SURGERIES CHILD REVIEW OF SYSTEMS CONSTITUTIONAL: ANY RECENT FEVER OR ILLNESS NO . CHILLS NO . GASTROENTEROLOGY: BOWEL INCONTINENCE NO . ANY NEW CHANGE IN BOWEL CONTROL? NO . ABDOMINAL PAIN NO . CONSTIPATION NO . GENITOURINARY: ANY NEW CHANGE IN BLADDER CONTROL? NO . IS THERE A CHANCE YOU COULD BE ? NO . URINARY INCONTINENCE NO . CARDIOLOGY: CHEST PRESSURE NO . CHEST PAIN NO . RESPIRATORY: COUGH NO . SHORTNESS OF BREATH NO . EXAMINATION GENERAL EXAMINATION: GENERALNO ACUTE DISTRESS, WELL NOURISHED AND HYDRATED. PSYCHAPPROPRIATE MOOD AND AFFECT , ORIENTED X 3. ASSESSMENTS INTERVERTEBRAL DISC DISORDER WITH RADICULOPATHY OF LUMBAR REGION - M51.16 (PRIMARY) SPONDYLOSIS WITHOUT MYELOPATHY OR RADICULOPATHY, CERVICAL REGION - M47.812 TREATMENT INTERVERTEBRAL DISC DISORDER WITH RADICULOPATHY OF LUMBAR REGION CLINICAL NOTES: 64-YEAR-OLD FEMALE IN FOR CHRONIC PAIN FOLLOW-UP. GIVEN PRESENTING SYMPTOMS RECOMMENDED CONTINUATION OF CURRENT MEDICATION REGIMEN WITH FOLLOW-UP IN 3 MONTHS. PATIENT HAS EXPRESSED UNDERSTANDING OF AND WAS IN AGREEMENT WITH TREATMENT PLAN. GIVEN TIME TO ASK QUESTIONS AND EXPRESS CONCERNS. , ISTOP REGISTRY REVIEWED AND DEMONSTRATES COMPLLIANCE. (REF # [id number] ) BRINGS IN MEDICATIONS WHICH IS APPROPRIATE FOR WHAT WAS DISPENSED. RECENT URINE TOXICOLOGY REVIEWED. NO UNAUTHORIZED MEDICATIONS. NO ILLICIT SUBSTANCES AND PRESCRIBED MEDICATIONS WERE PRESENT. TELEHEALTH VISIT CONDUCTED VIA ZOOM. TIME SPENT PATIENT 8 MINUTES. DISPOSITION & COMMUNICATION FOLLOW UP 3 MONTHS (REASON: BACK AND NECK PAIN) ELECTRONICALLY SIGNED BY KHLOE CHAPPELL ON 10/02/2019 AT 08:12 AM EDT DISCLAIMER : THIS IS A VISIT SUMMARY EXTRACTED FROM THE [employer] CHART. IT IS NOT A COPY OF THE [employer] PROGRESS NOTE. RADHA
== END ==
LOC: M TMPAIN 13:30 → M PAIN 13:30
PROVIDERS: ATTEND Family Medicine
DX: M51.16 Intervertebral disc disorders with radiculopathy, lumbar region (principal); M47.812 Spondylosis without myelopathy or radiculopathy, cervical region

== ENCOUNTER → 2020-01-01 | Outpatient (CLI) | payer MEDICARE, BC | LOC: M PAIN 09:52 | PROVIDERS: ATTEND Family Medicine | DX: M96.1 Postlaminectomy syndrome, not elsewhere classified (principal) ==

== ENCOUNTER → 2020-04-04 | Outpatient (CLI) | payer MEDICARE, BC ==
--- NOTE | 2020-04-06 06:16 | ECWPNPC ---
PATIENT NAME: MARY KATE HAMMOND : 1955 GENDER: FEMALE VISIT DATE: 04/04/2020 DISCHARGE DATE: 04/04/20 1159 VISIT LOCKED DATE TIME: PHYSICIAN: GISSELLE DE LA TORRE RESOURCE: GISSELLE DE LA TORRE REASON FOR APPOINTMENT 1. NECK/LOW BACK HISTORY OF PRESENT ILLNESS DEPRESSION SCREENING: PHQ-2 (2015 EDITION) LITTLE INTEREST OR PLEASURE IN DOING THINGS?NOT AT ALL FEELING DOWN, DEPRESSED, OR HOPELESS?NOT AT ALL TOTAL SCORE0 64-YEAR-OLD FEMALE IN FOR CHRONIC PAIN FOLLOW-UP. SHE RATES HER PAIN CURRENTLY AT A 5 OUT OF 10 AND DESCRIBES IT ACHING AND STABBING. SHE FEELS HER MEDICATIONS ARE HELPFUL AND DENIES MED SIDE EFFECTS AT THIS TIME. GENERAL: -. FALL RISK SCREENING: SCREENING :NO FALLS REPORTED IN THE LAST YEAR PAIN SCREENING: PATIENT HAS A COMPLAINT OF ACUTE OR CHRONIC PAIN :YES LOCATION OF PAIN:NECK, LOW BACK, LEG(S) INTENSITY OF PAIN (SCALE OF 1 TO 10):5 WHAT DOES YOUR PAIN FEEL LIKE:ACHING, STABBING DURATION:CONTINOUS, ALL DAY PAIN IS INCREASED BY:ACTIVITIES, OTHERS PROLONGED SITTING, WALKING, LAYING DOWN PAIN IS DECREASED BY:USE OF PAIN MEDICATIONS, OTHERS CBD LOTION HELPS OCCASSIONALLY NURSING NOTE: -. PAIN CENTER INTAKE QUESTIONS: DO YOU HAVE A HISTORY OF MRSA? :NO DO YOU TAKE A BLOOD THINNERS? :NO DO YOU HAVE ANY BLEEDING DISORDERS? :NO ANY NEW NUMBNESS OR WEAKNESS IN YOUR LEGS OR ARMS? :YES INCREASING NUMBNESS TO BILATERAL HANDS ANY PACEMAKER,DEFIBRILLATOR, OR DORSAL COLUMN STIMULATOR? :YES DCS DO YOU HAVE ANY RASHES OR OPEN SORES? :NO ARE YOU ALLERGIC TO IV DYE? :NO ARE YOU DIABETIC? :NO ANY NEW PROBLEMS WITH YOUR MEDICATIONS? :NO HAVE YOU RECEIVED A VACCINE IN THE PAST 30 DAYS? :YES IF SO WHAT VACCINE AND WHEN? FLU AND PNEUMONIA VACCINES LAST SATURDAY DO YOU PLAN TO RECEIVE A VACCINE IN THE NEXT 21 DAYS? :NO DO YOU NEED ANY PRESCRIPTION? :YES TRAMADOL & BACLOFEN DO YOU TAKE ANY IMMUNOSUPPRESSIVE MEDICATIONS? :NO IS THERE A CHANCE YOU COULD BE ? :NO ARE YOU BREAST FEEDING? :NO CURRENT MEDICATIONS TAKING PAXIL 10 MG TABLET 1 TABLET IN THE MORNING ORALLY ONCE A DAY TAKING CALCIUM + D 600-200 MG-UNIT TABLET 1 TABLET WITH FOOD ORALLY ONCE A DAY TAKING GABAPENTIN 300 MG CAPSULE 2 ORALLY THREE TIMES A DAY AND MAY TAKE A 3RD CAP AT NITE MDD=7 TAKING MIRAPEX 0.25 MG TABLET 2 TABLETS ORALLY ONCE A DAY, NOTES: UNSURE OF DOSE TAKING FAMOTIDINE 40 MG TABLET 1 TABLET AT BEDTIME ORALLY ONCE A DAY TAKING TRAMADOL HCL 50 MG TABLET 1 TABLET NEEDED ORALLY EVERY 6 HRS PRN PAIN MDD=4 CHRONIC PAIN TAKING BACLOFEN 10 MG TABLET 1 TABLET WITH FOOD OR MILK ORALLY BEFORE BEDTIME NOT-TAKING ROPINIROLE HCL 0.25 MG TABLET 1 TABLET 1 TO 3 HOURS BEFORE BEDTIME ORALLY ONCE A DAY NOT-TAKING MIRAPEX ER 1.5 MG TABLET EXTENDED RELEASE 24 HOUR 1 TABLET ORALLY ONCE A DAY MEDICATION LIST REVIEWED AND RECONCILED WITH THE PATIENT PAST MEDICAL HISTORY HEPATITIS ACID REFLUX NECK AND BACK PAIN RESTLESS LEG SYNDROME FIBROMYALGIA ALLERGIES N.K.D.A. SURGICAL HISTORY CERVICAL DISCECTOMY C5-6 1994 SPINAL STIMULATOR 2 C-SECTIONS 1983,1974 APPENDECTOMY 1971 CHOLECYSTECTOMY 1988 BILARTERAL TUBAL LIGATION 1974 REVERSAL OF TUBAL 1984 FAMILY HISTORY FATHER: 62 YRS, DIAGNOSED WITH OTHER MALIGNANT NEOPLASM OF UNSPECIFIED SITE MOTHER: 83 YRS, UNSPECIFIED HEART DISEASE, HYPERTENSION 3 SON(S) - HEALTHY. FATHER-STOMACH CA. SOCIAL HISTORY GENERAL: TOBACCO USE ARE YOU A: NONSMOKER. LATEX QUESTIONNAIRE LATEX ALLERGY : HAVE YOU EVER DEVELOPED ANY TYPE OF REACTION AFTER HANDLING LATEX PRODUCTS SUCH RUBBER GLOVES, CONDOMS, DIAPHRAGMS, BALLOONS, SOCKS, OR UNDERWEAR?NO LATEX ALLERGY : HAVE YOU EVER DEVELOPED ANY TYPE OF REACTION DURING OR AFTER DENTAL APPOINTMENT, VAGINAL/RECTAL EXAMINATION, SURGICAL PROCEDURE, OR ANY OTHER EXPOSURE?NO LATEX RISK : HAVE YOU EVER HAD ANY DIFFICULTY BREATHING OR HIVES AFTER EATING OR HANDLING ANY FRUITS, OR VEGETABLES; SUCH KIWI, BANANAS, STONE FRUITS, OR CHESTNUTSNO LATEX RISK : DO YOU HAVE A PREVIOUS PERSONAL HISTORY OF MORE THAN NINE SURGERIES, SPINA BIFIDA, OR REPEATED CATHERIZATIONS? NO LATEX RISK : ARE YOU FREQUENTLY EXPOSED TO LATEX PRODUCTS IN YOUR OCCUPATION?NO DATE ASKED : 04/04/2020 ALCOHOL SCREENING DID YOU HAVE A DRINK CONTAINING ALCOHOL IN THE PAST YEAR?YES HOW OFTEN DID YOU HAVE SIX OR MORE DRINKS ON ONE OCCASION IN THE PAST YEAR?NEVER (0 POINTS) HOW MANY DRINKS DID YOU HAVE ON A TYPICAL DAY WHEN YOU WERE DRINKING IN THE PAST YEAR?1 OR 2 (0 POINTS) HOW OFTEN DID YOU HAVE A DRINK CONTAINING ALCOHOL IN THE PAST YEAR?MONTHLY OR LESS (1 POINT) POINTS1 INTERPRETATIONNEGATIVE RECREATIONAL DRUG USE DRUG USE?NO CAFFEINE CAFFEINE USE?YES HOW OFTEN AND HOW MUCH? DAILY USE CONFUCIANIST [id number] RASTAFARI LANGUAGE LANGUAGES SPOKEN:TANZANIAN EDUCATION LEVEL OF EDUCATION:HIGH SCHOOL LEARNING BARRIERS / SPECIAL NEEDS CHANGE FROM LAST VISIT?NO BARRIERS TO LEARNING?NO HEARING IMPAIRED?NO VISION IMPAIRED?YES :CORRECTIVE LENSES COGNITIVELY IMPAIRED?NO READINESS TO LEARN?YES LEARNING PREFERENCES?YES :DEMONSTRATION/VERBAL INSTRUCTION LEARNING CAPABILITIES PRESENT?YES EMOTIONAL BARRIERS?NO SPECIAL DEVICES?NO PROTOZOOLOGY TEACHER NEEDED?NO DOMESTIC VIOLENCE DO YOU FEEL SAFE IN YOUR ENVIRONMENT?YES PAIN CLINIC PFS, CLERGY, PUBLIC HEALTH REFERRALS PFS REFERRAL NEEDED?NO CLERGY REFERRAL NEEDED?NO PUBLIC HEALTH REFERRAL NEEDED?NO WAS THE PROVIDER NOTIFIED OF ANY PERTINENT INFO?YES N/A HAS THE PATIENT BEEN EDUCATED REGARDING HIS/HER PLAN OF CARE?YES HAS THE PATIENT BEEN EDUCATED REGARDING PAIN, THE RISK FOR PAIN, THE IMPORTANCE OF EFFECTIVE PAIN MANAGEMENT, AND THE PAIN ASSESSMENT PROCESS?YES ADVANCE DIRECTIVE ADVANCE DIRECTIVE DISCUSSED WITH PATIENT:YES PT STATES SHE HAS A HCP LIYA HAMMOND [phone], LIVING WILL AND POA PT. ASKED TO BRING COPIES IN FOR OUR RECORD. HOSPITALIZATION/MAJOR DIAGNOSTIC PROCEDURE SURGERIES CHILD REVIEW OF SYSTEMS CONSTITUTIONAL: ANY RECENT FEVER NO . CHILLS NO . WEIGHT CHANGE OF UNKNOWN REASONS NO . GASTROENTEROLOGY: NEW UNEXPLAINABLE CHANGES IN BOWEL CONTROL NO . CONSTIPATION NO . GENITOURINARY: ANY NEW CHANGE IN BLADDER CONTROL? NO . NEUROLOGY: NEW ONSET DIZZINESS OR NEUROLOGICAL CHANGES NOT MENTIONED NO . NEW NUMBNESS OR PAIN PATTERNS NOT MENTIONED AND PERTINENT TO TODAY'S VISIT NO . CARDIOLOGY: NEW CHEST PRESSURE NO . NEW CHEST PAIN NO . RESPIRATORY: UNEXPLAINABLE COUGH NO . NEW SHORTNESS OF BREATH NO . VITAL SIGNS WT 119.8 LBS, HT 64", BMI 20.56 INDEX, BP 108/56 MM HG, HR 77 /MIN, RR 16 /MIN, TEMP 97.0 F, OXYGEN SAT % 98%, SAFE IN ENV? (Y/N) Y, NA INITIALS AW 1106, REVIEWED BY: JSJ. DIMA RN. EXAMINATION GENERAL EXAMINATION: GENERALNO ACUTE DISTRESS, WELL NOURISHED AND HYDRATED. PSYCHAPPROPRIATE MOOD AND AFFECT . LUNGS:CLEAR TO AUSCULTATION BILATERALLY, NO WHEEZES, RHONCHI, RALES. HEART:NO MURMURS, REGULAR RATE AND RHYTHM. ASSESSMENTS INTERVERTEBRAL DISC DISORDER WITH RADICULOPATHY OF LUMBAR REGION - M51.16 (PRIMARY) TREATMENT INTERVERTEBRAL DISC DISORDER WITH RADICULOPATHY OF LUMBAR REGION NOTES: 64-YEAR-OLD FEMALE IN FOR CHRONIC PAIN FOLLOW-UP. GIVEN PRESENTING SYMPTOMS RECOMMEND FOLLOW-UP IN 3 MONTHS. PATIENT HAS EXPRESSED UNDERSTANDING OF AND WAS IN AGREEMENT WITH TREATMENT PLAN. GIVEN TIME TO ASK QUESTIONS AND EXPRESS CONCERNS. , ISTOP REGISTRY REVIEWED AND DEMONSTRATES COMPLLIANCE. (REF # [id number] ) BRINGS IN MEDICATIONS WHICH IS APPROPRIATE FOR WHAT WAS DISPENSED. RECENT URINE TOXICOLOGY REVIEWED. NO UNAUTHORIZED MEDICATIONS. NO ILLICIT SUBSTANCES AND PRESCRIBED MEDICATIONS WERE PRESENT. PROCEDURE CODES [id number] ESTABILISHED PATIENT [facility] CHARGE DISPOSITION & COMMUNICATION FOLLOW UP 3 MONTHS (REASON: BACK PAIN) ELECTRONICALLY SIGNED BY KHLOE CHAPPELL ON 04/05/2020 AT 08:56 AM EST DISCLAIMER : THIS IS A VISIT SUMMARY EXTRACTED FROM THE [email or web address] CHART. IT IS NOT A COPY OF THE [employer] PROGRESS NOTE. RADHA
== END ==
LOC: M PAIN 11:00
PROVIDERS: ATTEND Family Medicine
DX: M51.16 Intervertebral disc disorders with radiculopathy, lumbar region (principal); G89.29 Other chronic pain; G25.81 Restless legs syndrome; M79.7 Fibromyalgia; Z86.19 Personal history of other infectious and parasitic diseases; Z96.89 Presence of other specified functional implants; Z79.899 Other long term (current) drug therapy

== ENCOUNTER → 2020-08-08 | Outpatient (CLI) | payer MEDICARE, BC ==
--- NOTE | 2020-08-10 01:11 | ECWPNPC ---
PATIENT NAME: MARY KATE HAMMOND : 1955 GENDER: FEMALE VISIT DATE: 08/08/2020 DISCHARGE DATE: 08/08/20 1137 VISIT LOCKED DATE TIME: PHYSICIAN: GISSELLE DE LA TORRE RESOURCE: GISSELLE DE LA TORRE REASON FOR APPOINTMENT 1. NECK/LOW BACK HISTORY OF PRESENT ILLNESS GENERAL: - 65-YEAR-OLD FEMALE IN FOR CHRONIC PAIN FOLLOW-UP. SHE RATES HER PAIN CURRENTLY AT A 5 OUT OF 10 AND DESCRIBES IT ACHING, CONTINUOUS, AND STABBING. PATIENT FEELS HER MEDICATIONS ARE HELPFUL AND DENIES MED SIDE EFFECTS AT THIS TIME. FALL RISK SCREENING: SCREENING :ONE FALL WITH INJURY REPORTED IN THE LAST YEAR. PATIENT DID NOT SEEK IMMEDIATE MEDICAL TREATMENT.. PAIN SCREENING: PATIENT HAS A COMPLAINT OF ACUTE OR CHRONIC PAIN :YES LOCATION OF PAIN:NECK, LOW BACK INTENSITY OF PAIN (SCALE OF 1 TO 10):5 WHAT DOES YOUR PAIN FEEL LIKE:ACHING, CONTINOUS, STABBING DURATION:CONTINOUS PAIN IS INCREASED BY:OTHERS WALKING ON HARD SURFACES PAIN IS DECREASED BY:USE OF PAIN MEDICATIONS NURSING NOTE: -. PAIN CENTER INTAKE QUESTIONS: DO YOU HAVE A HISTORY OF MRSA? :NO DO YOU TAKE A BLOOD THINNERS? :NO DO YOU HAVE ANY BLEEDING DISORDERS? :NO ANY NEW NUMBNESS OR WEAKNESS IN YOUR LEGS OR ARMS? :YES BILATERAL HAND NUMBNESS ANY PACEMAKER,DEFIBRILLATOR, OR DORSAL COLUMN STIMULATOR? :YES DCS DO YOU HAVE ANY RASHES OR OPEN SORES? :NO ARE YOU ALLERGIC TO IV DYE? :NO ARE YOU DIABETIC? :NO ANY NEW PROBLEMS WITH YOUR MEDICATIONS? :NO HAVE YOU RECEIVED A VACCINE IN THE PAST 30 DAYS? :YES IF SO WHAT VACCINE AND WHEN? RECEIVED THE SECOND COVID VACCINATION 06/18/2020 DO YOU PLAN TO RECEIVE A VACCINE IN THE NEXT 21 DAYS? :NO DO YOU NEED ANY PRESCRIPTION? :YES TRAMADOL DO YOU TAKE ANY IMMUNOSUPPRESSIVE MEDICATIONS? :NO DO YOU HAVE ANY KIDNEY OR LIVER DISEASE? :YES HISTORY OF HEPATITIS C IS THERE A CHANCE YOU COULD BE ? :NO ARE YOU BREAST FEEDING? :NO CURRENT MEDICATIONS TAKING PAXIL 10 MG TABLET 1 TABLET IN THE MORNING ORALLY ONCE A DAY TAKING CALCIUM + D 600-200 MG-UNIT TABLET 1 TABLET WITH FOOD ORALLY ONCE A DAY TAKING GABAPENTIN 300 MG CAPSULE 2 ORALLY THREE TIMES A DAY AND MAY TAKE A 3RD CAP AT NITE MDD=7 TAKING MIRAPEX 0.25 MG TABLET 2 TABLETS ORALLY ONCE A DAY, NOTES: UNSURE OF DOSE TAKING FAMOTIDINE 40 MG TABLET 1 TABLET AT BEDTIME ORALLY ONCE A DAY TAKING TRAMADOL HCL 50 MG TABLET 1 TABLET NEEDED ORALLY EVERY 6 HRS PRN PAIN MDD=4 CHRONIC PAIN TAKING BACLOFEN 10 MG TABLET 1 TABLET WITH FOOD OR MILK ORALLY BEFORE BEDTIME TAKING NEURONTIN 300 MG CAPSULE 1 CAPSULE ORALLY ONCE A DAY UNKNOWN ROPINIROLE HCL 0.25 MG TABLET 1 TABLET 1 TO 3 HOURS BEFORE BEDTIME ORALLY ONCE A DAY UNKNOWN MIRAPEX ER 1.5 MG TABLET EXTENDED RELEASE 24 HOUR 1 TABLET ORALLY ONCE A DAY MEDICATION LIST REVIEWED AND RECONCILED WITH THE PATIENT PAST MEDICAL HISTORY HEPATITIS ACID REFLUX NECK AND BACK PAIN RESTLESS LEG SYNDROME FIBROMYALGIA ALLERGIES N.K.D.A. SOCIAL HISTORY GENERAL: TOBACCO USE ARE YOU A: NONSMOKER. LATEX QUESTIONNAIRE LATEX ALLERGY : HAVE YOU EVER DEVELOPED ANY TYPE OF REACTION AFTER HANDLING LATEX PRODUCTS SUCH RUBBER GLOVES, CONDOMS, DIAPHRAGMS, BALLOONS, SOCKS, OR UNDERWEAR?NO LATEX ALLERGY : HAVE YOU EVER DEVELOPED ANY TYPE OF REACTION DURING OR AFTER DENTAL APPOINTMENT, VAGINAL/RECTAL EXAMINATION, SURGICAL PROCEDURE, OR ANY OTHER EXPOSURE?NO LATEX RISK : HAVE YOU EVER HAD ANY DIFFICULTY BREATHING OR HIVES AFTER EATING OR HANDLING ANY FRUITS, OR VEGETABLES; SUCH KIWI, BANANAS, STONE FRUITS, OR CHESTNUTSNO LATEX RISK : DO YOU HAVE A PREVIOUS PERSONAL HISTORY OF MORE THAN NINE SURGERIES, SPINA BIFIDA, OR REPEATED CATHERIZATIONS? NO LATEX RISK : ARE YOU FREQUENTLY EXPOSED TO LATEX PRODUCTS IN YOUR OCCUPATION?NO DATE ASKED : 08/08/2020 ALCOHOL USE: NO. ALCOHOL SCREENING DID YOU HAVE A DRINK CONTAINING ALCOHOL IN THE PAST YEAR?YES HOW OFTEN DID YOU HAVE SIX OR MORE DRINKS ON ONE OCCASION IN THE PAST YEAR?NEVER (0 POINTS) HOW MANY DRINKS DID YOU HAVE ON A TYPICAL DAY WHEN YOU WERE DRINKING IN THE PAST YEAR?1 OR 2 (0 POINTS) HOW OFTEN DID YOU HAVE A DRINK CONTAINING ALCOHOL IN THE PAST YEAR?MONTHLY OR LESS (1 POINT) POINTS1 INTERPRETATIONNEGATIVE RECREATIONAL DRUG USE DRUG USE?NO CAFFEINE CAFFEINE USE?YES HOW OFTEN AND HOW MUCH? DAILY USE BUDDHISM [id number] ANGLICAN LANGUAGE LANGUAGES SPOKEN:YI EDUCATION LEVEL OF EDUCATION:HIGH SCHOOL LEARNING BARRIERS / SPECIAL NEEDS CHANGE FROM LAST VISIT?NO BARRIERS TO LEARNING?NO HEARING IMPAIRED?NO VISION IMPAIRED?YES :CORRECTIVE LENSES COGNITIVELY IMPAIRED?NO READINESS TO LEARN?YES LEARNING PREFERENCES?YES :DEMONSTRATION/VERBAL INSTRUCTION LEARNING CAPABILITIES PRESENT?YES EMOTIONAL BARRIERS?NO SPECIAL DEVICES?NO TAR BOILER NEEDED?NO DOMESTIC VIOLENCE DO YOU FEEL SAFE IN YOUR ENVIRONMENT?YES - PFS REFERRAL NEEDED?NO CLERGY REFERRAL NEEDED?NO PUBLIC HEALTH REFERRAL NEEDED?NO WAS THE PROVIDER NOTIFIED OF ANY PERTINENT INFO?YES N/A HAS THE PATIENT BEEN EDUCATED REGARDING HIS/HER PLAN OF CARE?YES HAS THE PATIENT BEEN EDUCATED REGARDING PAIN, THE RISK FOR PAIN, THE IMPORTANCE OF EFFECTIVE PAIN MANAGEMENT, AND THE PAIN ASSESSMENT PROCESS?YES ADVANCE DIRECTIVE ADVANCE DIRECTIVE DISCUSSED WITH PATIENT:YES PT STATES SHE HAS A HCP LIYA HAMMOND [phone], LIVING WILL AND POA PT. ASKED TO BRING COPIES IN FOR OUR RECORD. REVIEW OF SYSTEMS CONSTITUTIONAL: ANY RECENT FEVER NO . CHILLS NO . WEIGHT CHANGE OF UNKNOWN REASONS NO . GASTROENTEROLOGY: NEW UNEXPLAINABLE CHANGES IN BOWEL CONTROL NO . CONSTIPATION NO . GENITOURINARY: ANY NEW CHANGE IN BLADDER CONTROL? NO . NEUROLOGY: NEW ONSET DIZZINESS OR NEUROLOGICAL CHANGES NOT MENTIONED NO . NEW NUMBNESS OR PAIN PATTERNS NOT MENTIONED AND PERTINENT TO TODAY'S VISIT NO . CARDIOLOGY: NEW CHEST PRESSURE NO . PATIENT DENIES NO . RESPIRATORY: UNEXPLAINABLE COUGH NO . NEW SHORTNESS OF BREATH NO . VITAL SIGNS WT 119.6 LBS, HT 64", BMI 20.53 INDEX, BP 104/53 MM HG, HR 81 /MIN, RR 18 /MIN, TEMP 98.1 F, OXYGEN SAT % 98%, SAFE IN ENV? (Y/N) YES, REVIEWED BY: ALBERTA CAMPOS MA. EXAMINATION GENERAL EXAMINATION: GENERALNO ACUTE DISTRESS, WELL NOURISHED AND HYDRATED. PSYCHAPPROPRIATE MOOD AND AFFECT . LUNGS:CLEAR TO AUSCULTATION BILATERALLY, NO WHEEZES, RHONCHI, RALES. HEART:NO MURMURS, REGULAR RATE AND RHYTHM. ASSESSMENTS CERVICAL SPONDYLOSIS - M47.812 (PRIMARY), RISK: (NULL) INTERVERTEBRAL DISC DISORDER WITH RADICULOPATHY OF LUMBAR REGION - M51.16, RISK: (NULL) TREATMENT CERVICAL SPONDYLOSIS NOTES: 65-YEAR-OLD FEMALE IN FOR CHRONIC PAIN FOLLOW-UP. GIVEN PRESENTING SYMPTOMS RECOMMENDED CONTINUATION OF CURRENT MEDICATION REGIMEN WITH FOLLOW-UP IN 3 MONTHS. PATIENT HAS EXPRESSED UNDERSTANDING OF AND WAS IN AGREEMENT WITH TREATMENT PLAN. GIVEN TIME TO ASK QUESTIONS AND EXPRESS CONCERNS. , [employer] REG[facility]RY REVIEWED AND DEMONSTRATES COMPLLIANCE. (REF # [id number] ) BRINGS IN MEDICATIONS WHICH IS APPROPRIATE FOR WHAT WAS DISPENSED. RECENT URINE TOXICOLOGY REVIEWED. NO UNAUTHORIZED MEDICATIONS. NO ILLICIT SUBSTANCES AND PRESCRIBED MEDICATIONS WERE PRESENT. INTERVERTEBRAL DISC DISORDER WITH RADICULOPATHY OF LUMBAR REGION REFILL TRAMADOL HCL TABLET, 50 MG, 1 TABLET NEEDED, ORALLY, EVERY 6 HRS PRN PAIN MDD=4 CHRONIC PAIN, 30 DAY(S), 120, REFILLS 2 PROCEDURE CODES FA211 ESTABILISHED PATIENT [facility] CHARGE DISPOSITION & COMMUNICATION FOLLOW UP 3 MONTHS (REASON: BACK AND NECK PAIN ) ELECTRONICALLY SIGNED BY KHLOE CHAPPELL ON 08/09/2020 AT 08:48 AM EDT DISCLAIMER : THIS IS A VISIT SUMMARY EXTRACTED FROM THE [employer] CHART. IT IS NOT A COPY OF THE [employer] PROGRESS NOTE. RADHA
== END ==
LOC: M PAIN 11:00
PROVIDERS: ATTEND Family Medicine
DX: M47.812 Spondylosis without myelopathy or radiculopathy, cervical region (principal); M51.16 Intervertebral disc disorders with radiculopathy, lumbar region; G89.29 Other chronic pain; G25.81 Restless legs syndrome; M79.7 Fibromyalgia; Z96.89 Presence of other specified functional implants; Z79.899 Other long term (current) drug therapy

== ENCOUNTER → 2020-08-31 | Outpatient (REF) | payer MEDICARE, BC ==
[2020-08-31 18:03] LABS: APPEARANCE, URINE CLEAR (CLEAR); BACTERIA, URINE AUTO NEGATIVE (NEGATIVE); BILIRUBIN, URINE AUTO NEGATIVE (NEGATIVE); BLOOD, URINE BLOOD NEGATIVE (NEGATIVE); COLOR, URINE STRAW (YELLOW); GLUCOSE, URINE (UA) AUTO NEGATIVE (NEGATIVE); KETONE, URINE AUTO NEGATIVE (NEGATIVE); LEUKOCYTE ESTERASE, URINE AUTO TRACE (NEGATIVE); NITRITE, URINE AUTO NEGATIVE (NEGATIVE); PROTEIN, URINE AUTO NEGATIVE (NEGATIVE); RBC, URINE AUTO 0 /HPF (0-3); SPECIFIC GRAVITY URINE AUTO 1.005 (1.002-1.035); SQUAMOUS EPITHELIAL CELL UR AU 0 /HPF (0-6); UROBILINOGEN, URINE AUTO 0.2 mg/dL (0.0-2.0); WBC, URINE AUTO 1 /HPF (0-3)
== END ==
LOC: M SMT 16:56
PROVIDERS: ATTEND Nurse Practitioner Women's Health
DX: R30.0 Dysuria (principal)
CPT/HCPCS: 81001; 87088; 87186; G0463

== ENCOUNTER → 2020-09-19 | Outpatient (CLI) | payer MEDICARE, BC ==
--- NOTE | 2020-09-20 23:33 | ECWPNPC ---
PATIENT NAME: MARY KATE HAMMOND : 1955 GENDER: FEMALE VISIT DATE: 09/19/2020 DISCHARGE DATE: 09/19/20 1138 VISIT LOCKED DATE TIME: PHYSICIAN: GISSELLE DE LA TORRE RESOURCE: GISSELLE DE LA TORRE REASON FOR APPOINTMENT 1. INCREASED NECK PAIN HISTORY OF PRESENT ILLNESS GENERAL: HPI 65-YEAR-OLD FEMALE IN FOR CHRONIC PAIN FOLLOW-UP. SHE RATES HER PAIN CURRENTLY AT A 9 OUT OF 10 AND DESCRIBES IT STABBING. PATIENT DOES ADMIT TO INCREASED NECK PAIN. . -. FALL RISK SCREENING: SCREENING ONE FALL WITH INJURY REPORTED IN THE LAST YEAR. PATIENT DID NOT SEEK IMMEDIATE MEDICAL TREATMENT.. PAIN SCREENING: PATIENT HAS A COMPLAINT OF ACUTE OR CHRONIC PAIN :YES LOCATION OF PAIN:NECK, OTHER: LEFT ARM INTENSITY OF PAIN (SCALE OF 1 TO 10):9 WITH MEDICATION WHAT DOES YOUR PAIN FEEL LIKE:STABBING DURATION:CONTINOUS, CONSTANT, AWAKENS FROM SLEEP PAIN IS INCREASED BY:ACTIVITIES PAIN IS DECREASED BY:OTHERS NOTHING IS HELPING WITH THE PAIN NURSING NOTE: -. PAIN CENTER INTAKE QUESTIONS: DO YOU HAVE A HISTORY OF MRSA? :NO DO YOU TAKE A BLOOD THINNERS? :NO DO YOU HAVE ANY BLEEDING DISORDERS? :NO ANY NEW NUMBNESS OR WEAKNESS IN YOUR LEGS OR ARMS? :YES BILATERAL HAND NUMBNESS ANY PACEMAKER,DEFIBRILLATOR, OR DORSAL COLUMN STIMULATOR? :YES DCS DO YOU HAVE ANY RASHES OR OPEN SORES? :NO ARE YOU ALLERGIC TO IV DYE? :NO ARE YOU DIABETIC? :NO ANY NEW PROBLEMS WITH YOUR MEDICATIONS? :NO HAVE YOU RECEIVED A VACCINE IN THE PAST 30 DAYS? :NO LAST COVID VACCINATION 06/18/2020 DO YOU PLAN TO RECEIVE A VACCINE IN THE NEXT 21 DAYS? :NO DO YOU NEED ANY PRESCRIPTION? :NO DO YOU TAKE ANY IMMUNOSUPPRESSIVE MEDICATIONS? :NO DO YOU HAVE ANY KIDNEY OR LIVER DISEASE? :YES HISTORY OF HEPATITIS C IS THERE A CHANCE YOU COULD BE ? :NO ARE YOU BREAST FEEDING? :NO CURRENT MEDICATIONS TAKING PAXIL 10 MG TABLET 1 TABLET IN THE MORNING ORALLY ONCE A DAY TAKING CALCIUM + D 600-200 MG-UNIT TABLET 1 TABLET WITH FOOD ORALLY ONCE A DAY TAKING GABAPENTIN 300 MG CAPSULE 2 ORALLY THREE TIMES A DAY AND MAY TAKE A 3RD CAP AT NITE MDD=7 TAKING MIRAPEX 0.25 MG TABLET 2 TABLETS ORALLY ONCE A DAY, NOTES: UNSURE OF DOSE TAKING FAMOTIDINE 40 MG TABLET 1 TABLET AT BEDTIME ORALLY ONCE A DAY TAKING BACLOFEN 10 MG TABLET 1 TABLET WITH FOOD OR MILK ORALLY BEFORE BEDTIME TAKING NEURONTIN 300 MG CAPSULE 1 CAPSULE ORALLY ONCE A DAY TAKING TRAMADOL HCL 50 MG TABLET 1 TABLET NEEDED ORALLY EVERY 6 HRS PRN PAIN MDD=4 CHRONIC PAIN NOT-TAKING BACTRIM DS 800-160 MG TABLET 1 TABLET ORALLY DIRECTED - 1 HOUR PRIOR TO CYSTOSCOPY NOT-TAKING AMPICILLIN 500 MG CAPSULE 1 CAPSULE 1 HOUR BEFORE OR 2 HOURS AFTER A MEAL ORALLY EVERY 6 HRS UNKNOWN ROPINIROLE HCL 0.25 MG TABLET 1 TABLET 1 TO 3 HOURS BEFORE BEDTIME ORALLY ONCE A DAY UNKNOWN MIRAPEX ER 1.5 MG TABLET EXTENDED RELEASE 24 HOUR 1 TABLET ORALLY ONCE A DAY MEDICATION LIST REVIEWED AND RECONCILED WITH THE PATIENT PAST MEDICAL HISTORY HEPATITIS ACID REFLUX NECK AND BACK PAIN RESTLESS LEG SYNDROME FIBROMYALGIA ALLERGIES N.K.D.A. SOCIAL HISTORY GENERAL: TOBACCO USE ARE YOU A: NONSMOKER. LATEX QUESTIONNAIRE LATEX ALLERGY : HAVE YOU EVER DEVELOPED ANY TYPE OF REACTION AFTER HANDLING LATEX PRODUCTS SUCH RUBBER GLOVES, CONDOMS, DIAPHRAGMS, BALLOONS, SOCKS, OR UNDERWEAR?NO LATEX ALLERGY : HAVE YOU EVER DEVELOPED ANY TYPE OF REACTION DURING OR AFTER DENTAL APPOINTMENT, VAGINAL/RECTAL EXAMINATION, SURGICAL PROCEDURE, OR ANY OTHER EXPOSURE?NO LATEX RISK : HAVE YOU EVER HAD ANY DIFFICULTY BREATHING OR HIVES AFTER EATING OR HANDLING ANY FRUITS, OR VEGETABLES; SUCH KIWI, BANANAS, STONE FRUITS, OR CHESTNUTSNO LATEX RISK : DO YOU HAVE A PREVIOUS PERSONAL HISTORY OF MORE THAN NINE SURGERIES, SPINA BIFIDA, OR REPEATED CATHERIZATIONS? NO LATEX RISK : ARE YOU FREQUENTLY EXPOSED TO LATEX PRODUCTS IN YOUR OCCUPATION?NO DATE ASKED : 09/19/2020 ALCOHOL USE: NO. ALCOHOL SCREENING DID YOU HAVE A DRINK CONTAINING ALCOHOL IN THE PAST YEAR?YES HOW OFTEN DID YOU HAVE SIX OR MORE DRINKS ON ONE OCCASION IN THE PAST YEAR?NEVER (0 POINTS) HOW MANY DRINKS DID YOU HAVE ON A TYPICAL DAY WHEN YOU WERE DRINKING IN THE PAST YEAR?1 OR 2 (0 POINTS) HOW OFTEN DID YOU HAVE A DRINK CONTAINING ALCOHOL IN THE PAST YEAR?MONTHLY OR LESS (1 POINT) POINTS1 INTERPRETATIONNEGATIVE RECREATIONAL DRUG USE DRUG USE?NO CAFFEINE CAFFEINE USE?YES HOW OFTEN AND HOW MUCH? DAILY USE MORAVIAN [id number] [employer] LANGUAGE LANGUAGES SPOKEN:VIETNAMESE EDUCATION LEVEL OF EDUCATION:HIGH SCHOOL LEARNING BARRIERS / SPECIAL NEEDS CHANGE FROM LAST VISIT?NO BARRIERS TO LEARNING?NO HEARING IMPAIRED?NO VISION IMPAIRED?YES :CORRECTIVE LENSES COGNITIVELY IMPAIRED?NO READINESS TO LEARN?YES LEARNING PREFERENCES?YES :DEMONSTRATION/VERBAL INSTRUCTION LEARNING CAPABILITIES PRESENT?YES EMOTIONAL BARRIERS?NO SPECIAL DEVICES?NO SKI BINDING FITTER AND REPAIRER NEEDED?NO DOMESTIC VIOLENCE DO YOU FEEL SAFE IN YOUR ENVIRONMENT?YES - PFS REFERRAL NEEDED?NO CLERGY REFERRAL NEEDED?NO PUBLIC HEALTH REFERRAL NEEDED?NO WAS THE PROVIDER NOTIFIED OF ANY PERTINENT INFO?YES N/A HAS THE PATIENT BEEN EDUCATED REGARDING HIS/HER PLAN OF CARE?YES HAS THE PATIENT BEEN EDUCATED REGARDING PAIN, THE RISK FOR PAIN, THE IMPORTANCE OF EFFECTIVE PAIN MANAGEMENT, AND THE PAIN ASSESSMENT PROCESS?YES ADVANCE DIRECTIVE ADVANCE DIRECTIVE DISCUSSED WITH PATIENT:YES PT STATES SHE HAS A HCP LIYA HAMMOND [phone], LIVING WILL AND POA PT. ASKED TO BRING COPIES IN FOR OUR RECORD. REVIEW OF SYSTEMS CONSTITUTIONAL: ANY RECENT FEVER NO . CHILLS NO . WEIGHT CHANGE OF UNKNOWN REASONS NO . GASTROENTEROLOGY: NEW UNEXPLAINABLE CHANGES IN BOWEL CONTROL NO . CONSTIPATION NO . GENITOURINARY: ANY NEW CHANGE IN BLADDER CONTROL? NO . NEUROLOGY: NEW ONSET DIZZINESS OR NEUROLOGICAL CHANGES NOT MENTIONED NO . NEW NUMBNESS OR PAIN PATTERNS NOT MENTIONED AND PERTINENT TO TODAY'S VISIT NO . CARDIOLOGY: NEW CHEST PRESSURE NO . PATIENT DENIES NO . RESPIRATORY: UNEXPLAINABLE COUGH NO . NEW SHORTNESS OF BREATH NO . VITAL SIGNS WT 117.8 LBS, HT 64", BMI 20.22 INDEX, BP 120/57 MM HG, HR 81 /MIN, RR 16 /MIN, TEMP 96.8 F, OXYGEN SAT % 98%, SAFE IN ENV? (Y/N) YES, NA INITIALS MA 11:09, REVIEWED BY: ALBERTA CAMPOS MA. EXAMINATION GENERAL EXAMINATION: GENERALNO ACUTE DISTRESS, WELL NOURISHED AND HYDRATED. PSYCHAPPROPRIATE MOOD AND AFFECT . LUNGS:CLEAR TO AUSCULTATION BILATERALLY, NO WHEEZES, RHONCHI, RALES. HEART:NO MURMURS, REGULAR RATE AND RHYTHM. ASSESSMENTS SPONDYLOSIS WITHOUT MYELOPATHY OR RADICULOPATHY, CERVICAL REGION - M47.812 (PRIMARY) TREATMENT SPONDYLOSIS WITHOUT MYELOPATHY OR RADICULOPATHY, CERVICAL REGION LAB: BLOOD UREA NITROGEN (BUN) LAB: CREATININE SMC CT C SPINE W/O FOLL BY [id number] NOTES: 65-YEAR-OLD FEMALE WITH COMPLAINTS OF INCREASED NECK PAIN. GIVEN PRESENTING SYMPTOMS RECOMMEND CT OF THE CERVICAL SPINE WITH FOLLOW-UP POST IMAGING. PATIENT HAS EXPRESSED UNDERSTANDING OF AND WAS IN AGREEMENT WITH TREATMENT PLAN. GIVEN TIME TO ASK QUESTIONS AND EXPRESS CONCERNS. [employer] REGISTRY REVIEWED AND DEMONSTRATES COMPLLIANCE. (REF # [id number] ) BRINGS IN MEDICATIONS WHICH IS APPROPRIATE FOR WHAT WAS DISPENSED. RECENT URINE TOXICOLOGY REVIEWED. NO UNAUTHORIZED MEDICATIONS. NO ILLICIT SUBSTANCES AND PRESCRIBED MEDICATIONS WERE PRESENT. PROCEDURE CODES FA211 ESTABILISHED PATIENT [facility] CHARGE DISPOSITION & COMMUNICATION FOLLOW UP POST IMAGING (REASON: CT OF THE CERVICAL SPINE WITH AND WITHOUT CONTRAST) ELECTRONICALLY SIGNED BY KHLOE CHAPPELL ON 09/20/2020 AT 01:27 PM EDT DISCLAIMER : THIS IS A VISIT SUMMARY EXTRACTED FROM THE [employer] CHART. IT IS NOT A COPY OF THE [employer] PROGRESS NOTE. RADHA
== END ==
LOC: M PAIN 11:15
PROVIDERS: ATTEND Family Medicine
DX: M47.812 Spondylosis without myelopathy or radiculopathy, cervical region (principal); G89.29 Other chronic pain; Z96.89 Presence of other specified functional implants; G25.81 Restless legs syndrome; M79.7 Fibromyalgia; Z79.899 Other long term (current) drug therapy

== ENCOUNTER → 2020-11-15 | Outpatient (CLI) | payer MEDICARE, BC ==
--- NOTE | 2020-11-17 00:33 | ECWPNPC ---
PATIENT NAME: MARY KATE HAMMOND : 1955 GENDER: FEMALE VISIT DATE: 11/15/2020 DISCHARGE DATE: 11/15/20 1150 VISIT LOCKED DATE TIME: PHYSICIAN: GISSELLE DE LA TORRE RESOURCE: GISSELLE DE LA TORRE REASON FOR APPOINTMENT 1. REVIEW CT-BACK /NECK HISTORY OF PRESENT ILLNESS DEPRESSION SCREENING: PHQ-2 (2015 EDITION) LITTLE INTEREST OR PLEASURE IN DOING THINGS?NOT AT ALL FEELING DOWN, DEPRESSED, OR HOPELESS?NOT AT ALL TOTAL SCORE0 GENERAL: HPI 65-YEAR-OLD FEMALE IN FOR CHRONIC PAIN FOLLOW-UP. PATIENT HAD A CT PERFORMED RECENTLY WHICH WILL BE REVIEWED WITH PATIENT TODAY. SHE RATES HER PAIN CURRENTLY AT AN 8 OUT OF 10 AND DESCRIBES IT ACHING, CONTINUOUS, AND THROBBING. SHE FEELS HER MEDICATIONS ARE HELPFUL AND DENIES MED SIDE EFFECTS AT THIS TIME.. -. FALL RISK SCREENING: SCREENING FEW FALLS REPORTED IN THE LAST YEAR WITHOUT INJURY. PAIN SCREENING: PATIENT HAS A COMPLAINT OF ACUTE OR CHRONIC PAIN :YES LOCATION OF PAIN:NECK INTENSITY OF PAIN (SCALE OF 1 TO 10):8 WHAT DOES YOUR PAIN FEEL LIKE:ACHING, CONTINOUS, THROBBING DURATION:CONTINOUS, CONSTANT, AWAKENS FROM SLEEP PAIN IS INCREASED BY:ACTIVITIES, OTHERS WALKING PAIN IS DECREASED BY:USE OF PAIN MEDICATIONS NURSING NOTE: -. PAIN CENTER INTAKE QUESTIONS: DO YOU HAVE A HISTORY OF MRSA? :NO DO YOU TAKE A BLOOD THINNERS? :NO DO YOU HAVE ANY BLEEDING DISORDERS? :NO ANY NEW NUMBNESS OR WEAKNESS IN YOUR LEGS OR ARMS? :YES BILATERAL HAND NUMBNESS ANY PACEMAKER,DEFIBRILLATOR, OR DORSAL COLUMN STIMULATOR? :YES DCS DO YOU HAVE ANY RASHES OR OPEN SORES? :NO ARE YOU ALLERGIC TO IV DYE? :NO ARE YOU DIABETIC? :NO ANY NEW PROBLEMS WITH YOUR MEDICATIONS? :NO HAVE YOU RECEIVED A VACCINE IN THE PAST 30 DAYS? :NO LAST COVID VACCINATION 06/18/2020 DO YOU PLAN TO RECEIVE A VACCINE IN THE NEXT 21 DAYS? :NO DO YOU NEED ANY PRESCRIPTION? :NO DO YOU TAKE ANY IMMUNOSUPPRESSIVE MEDICATIONS? :NO DO YOU HAVE ANY KIDNEY OR LIVER DISEASE? :YES HISTORY OF HEPATITIS C IS THERE A CHANCE YOU COULD BE ? :NO ARE YOU BREAST FEEDING? :NO CURRENT MEDICATIONS TAKING PAXIL 10 MG TABLET 1 TABLET IN THE MORNING ORALLY ONCE A DAY TAKING CALCIUM + D 600-200 MG-UNIT TABLET 1 TABLET WITH FOOD ORALLY ONCE A DAY TAKING GABAPENTIN 300 MG CAPSULE 2 ORALLY THREE TIMES A DAY AND MAY TAKE A 3RD CAP AT NITE MDD=7 TAKING MIRAPEX 0.25 MG TABLET 2 TABLETS ORALLY ONCE A DAY, NOTES: UNSURE OF DOSE TAKING FAMOTIDINE 40 MG TABLET 1 TABLET AT BEDTIME ORALLY ONCE A DAY TAKING NEURONTIN 300 MG CAPSULE 1 CAPSULE ORALLY ONCE A DAY TAKING TRAMADOL HCL 50 MG TABLET 1 TABLET NEEDED ORALLY EVERY 6 HRS PRN PAIN MDD=4 CHRONIC PAIN TAKING BACLOFEN 10 MG TABLET 1 TABLET WITH FOOD OR MILK ORALLY BEFORE BEDTIME NOT-TAKING BACTRIM DS 800-160 MG TABLET 1 TABLET ORALLY DIRECTED - 1 HOUR PRIOR TO CYSTOSCOPY NOT-TAKING AMPICILLIN 500 MG CAPSULE 1 CAPSULE 1 HOUR BEFORE OR 2 HOURS AFTER A MEAL ORALLY EVERY 6 HRS UNKNOWN ROPINIROLE HCL 0.25 MG TABLET 1 TABLET 1 TO 3 HOURS BEFORE BEDTIME ORALLY ONCE A DAY UNKNOWN MIRAPEX ER 1.5 MG TABLET EXTENDED RELEASE 24 HOUR 1 TABLET ORALLY ONCE A DAY MEDICATION LIST REVIEWED AND RECONCILED WITH THE PATIENT PAST MEDICAL HISTORY HEPATITIS ACID REFLUX NECK AND BACK PAIN RESTLESS LEG SYNDROME FIBROMYALGIA ALLERGIES N.K.D.A. SOCIAL HISTORY GENERAL: TOBACCO USE ARE YOU A: NONSMOKER. LATEX QUESTIONNAIRE LATEX ALLERGY : HAVE YOU EVER DEVELOPED ANY TYPE OF REACTION AFTER HANDLING LATEX PRODUCTS SUCH RUBBER GLOVES, CONDOMS, DIAPHRAGMS, BALLOONS, SOCKS, OR UNDERWEAR?NO LATEX ALLERGY : HAVE YOU EVER DEVELOPED ANY TYPE OF REACTION DURING OR AFTER DENTAL APPOINTMENT, VAGINAL/RECTAL EXAMINATION, SURGICAL PROCEDURE, OR ANY OTHER EXPOSURE?NO LATEX RISK : HAVE YOU EVER HAD ANY DIFFICULTY BREATHING OR HIVES AFTER EATING OR HANDLING ANY FRUITS, OR VEGETABLES; SUCH KIWI, BANANAS, STONE FRUITS, OR CHESTNUTSNO LATEX RISK : DO YOU HAVE A PREVIOUS PERSONAL HISTORY OF MORE THAN NINE SURGERIES, SPINA BIFIDA, OR REPEATED CATHERIZATIONS? NO LATEX RISK : ARE YOU FREQUENTLY EXPOSED TO LATEX PRODUCTS IN YOUR OCCUPATION?NO DATE ASKED : 11/15/2020 ALCOHOL USE: NO. ALCOHOL SCREENING DID YOU HAVE A DRINK CONTAINING ALCOHOL IN THE PAST YEAR?YES HOW OFTEN DID YOU HAVE SIX OR MORE DRINKS ON ONE OCCASION IN THE PAST YEAR?NEVER (0 POINTS) HOW MANY DRINKS DID YOU HAVE ON A TYPICAL DAY WHEN YOU WERE DRINKING IN THE PAST YEAR?1 OR 2 (0 POINTS) HOW OFTEN DID YOU HAVE A DRINK CONTAINING ALCOHOL IN THE PAST YEAR?MONTHLY OR LESS (1 POINT) POINTS1 INTERPRETATIONNEGATIVE RECREATIONAL DRUG USE DRUG USE?NO CAFFEINE CAFFEINE USE?YES HOW OFTEN AND HOW MUCH? DAILY USE BUD[employer]IST [id number] BUDDHISM LANGUAGE LANGUAGES SPOKEN:EMIRATI EDUCATION LEVEL OF EDUCATION:HIGH SCHOOL LEARNING BARRIERS / SPECIAL NEEDS CHANGE FROM LAST VISIT?NO BARRIERS TO LEARNING?NO HEARING IMPAIRED?NO VISION IMPAIRED?YES :CORRECTIVE LENSES COGNITIVELY IMPAIRED?NO READINESS TO LEARN?YES LEARNING PREFERENCES?YES :DEMONSTRATION/VERBAL INSTRUCTION LEARNING CAPABILITIES PRESENT?YES EMOTIONAL BARRIERS?NO SPECIAL DEVICES?NO SOFTWARE ENGINEER INTERN NEEDED?NO DOMESTIC VIOLENCE DO YOU FEEL SAFE IN YOUR ENVIRONMENT?YES - PFS REFERRAL NEEDED?NO CLERGY REFERRAL NEEDED?NO PUBLIC HEALTH REFERRAL NEEDED?NO WAS THE PROVIDER NOTIFIED OF ANY PERTINENT INFO?YES N/A HAS THE PATIENT BEEN EDUCATED REGARDING HIS/HER PLAN OF CARE?YES HAS THE PATIENT BEEN EDUCATED REGARDING PAIN, THE RISK FOR PAIN, THE IMPORTANCE OF EFFECTIVE PAIN MANAGEMENT, AND THE PAIN ASSESSMENT PROCESS?YES ADVANCE DIRECTIVE ADVANCE DIRECTIVE DISCUSSED WITH PATIENT:YES PT STATES SHE HAS A HCP LIYA HAMMOND [phone], LIVING WILL AND POA PT. ASKED TO BRING COPIES IN FOR OUR RECORD. REVIEW OF SYSTEMS CONSTITUTIONAL: ANY RECENT FEVER NO . CHILLS NO . WEIGHT CHANGE OF UNKNOWN REASONS NO . GASTROENTEROLOGY: NEW UNEXPLAINABLE CHANGES IN BOWEL CONTROL NO . CONSTIPATION NO . GENITOURINARY: ANY NEW CHANGE IN BLADDER CONTROL? NO . NEUROLOGY: NEW ONSET DIZZINESS OR NEUROLOGICAL CHANGES NOT MENTIONED NO . NEW NUMBNESS OR PAIN PATTERNS NOT MENTIONED AND PERTINENT TO TODAY'S VISIT NO . CARDIOLOGY: NEW CHEST PRESSURE NO . PATIENT DENIES NO . RESPIRATORY: UNEXPLAINABLE COUGH NO . NEW SHORTNESS OF BREATH NO . VITAL SIGNS WT 114 LBS, HT 64", BMI 19.57 INDEX, BP 129/59 MM HG, HR 83 /MIN, RR 16 /MIN, TEMP 98.2 F, OXYGEN SAT % 98%, SAFE IN ENV? (Y/N) YES, NA INITIALS VA 11:12, REVIEWED BY: ALBERTA CAMPOS MA. EXAMINATION GENERAL EXAMINATION: GENERALNO ACUTE DISTRESS, WELL NOURISHED AND HYDRATED. PSYCHAPPROPRIATE MOOD AND AFFECT . LUNGS:CLEAR TO AUSCULTATION BILATERALLY, NO WHEEZES, RHONCHI, RALES. HEART:NO MURMURS, REGULAR RATE AND RHYTHM. ASSESSMENTS CERVICAL SPONDYLOSIS - M47.812 (PRIMARY) TREATMENT CERVICAL SPONDYLOSIS NOTES: 65-YEAR-OLD FEMALE IN FOR CHRONIC PAIN FOLLOW-UP. CT WAS REVIEWED WITH PATIENT TODAY. DISCUSSED THE POTENTIAL OF ADDING MEDICATIONS TO HELP BETTER MANAGE PATIENT'S PAIN AND AT THIS TIME IT WAS DECLINED. GIVEN PRESENTING SYMPTOMS RECOMMEND FOLLOW-UP IN 3 MONTHS. PATIENT HAS EXPRESSED UNDERSTANDING OF AND WAS IN AGREEMENT WITH TREATMENT PLAN. GIVEN TIME TO ASK QUESTIONS AND EXPRESS CONCERNS. [employer] REGISTRY REVIEWED AND DEMONSTRATES COMPLLIANCE. (REF # [id number] ) BRINGS IN MEDICATIONS WHICH IS APPROPRIATE FOR WHAT WAS DISPENSED. RECENT URINE TOXICOLOGY REVIEWED. NO UNAUTHORIZED MEDICATIONS. NO ILLICIT SUBSTANCES AND PRESCRIBED MEDICATIONS WERE PRESENT. PROCEDURE CODES FA211 ESTABILISHED PATIENT [facility] CHARGE DISPOSITION & COMMUNICATION FOLLOW UP 3 MONTHS (REASON: NECK PAIN) ELECTRONICALLY SIGNED BY KHLOE CHAPPELL ON 11/16/2020 AT 09:31 AM EDT DISCLAIMER : THIS IS A VISIT SUMMARY EXTRACTED FROM THE [employer] CHART. IT IS NOT A COPY OF THE [employer] PROGRESS NOTE. RADHA
== END ==
LOC: M PAIN 11:15
PROVIDERS: ATTEND Family Medicine
DX: M47.812 Spondylosis without myelopathy or radiculopathy, cervical region (principal); G89.29 Other chronic pain; G25.81 Restless legs syndrome; M79.7 Fibromyalgia; Z96.89 Presence of other specified functional implants; Z79.899 Other long term (current) drug therapy

== ENCOUNTER → 2021-07-18 | Outpatient (CLI) | payer MEDICARE, BC | LOC: M PAIN 10:00 | PROVIDERS: ATTEND Nurse Practitioner Family | DX: M96.1 Postlaminectomy syndrome, not elsewhere classified (principal); M50.10 Cervical disc disorder with radiculopathy, unspecified cervical region; G25.81 Restless legs syndrome; M79.7 Fibromyalgia; Z96.89 Presence of other specified functional implants; Z79.899 Other long term (current) drug therapy ==

== ENCOUNTER → 2021-11-01 | Outpatient (CLI) | payer MEDICARE, BC | LOC: M PAIN 09:15 | PROVIDERS: ATTEND Anesthesiology | DX: Z53.21 Procedure and treatment not carried out due to patient leaving prior to being seen by health care provider (principal) ==

== ENCOUNTER → 2022-03-20 | Outpatient (CLI) | payer MEDICARE, BC | LOC: M PAIN 09:15 | PROVIDERS: ATTEND Nurse Practitioner Family | DX: M51.16 Intervertebral disc disorders with radiculopathy, lumbar region (principal); G89.29 Other chronic pain; Z96.89 Presence of other specified functional implants; G25.81 Restless legs syndrome; M79.7 Fibromyalgia; Z79.899 Other long term (current) drug therapy ==

== ENCOUNTER → 2022-08-31 | Outpatient (CLI) | payer MEDICARE, BC | LOC: M PAIN 11:30 | PROVIDERS: ATTEND Nurse Practitioner Family | DX: M51.16 Intervertebral disc disorders with radiculopathy, lumbar region (principal); G89.29 Other chronic pain; K21.9 Gastro-esophageal reflux disease without esophagitis; G25.81 Restless legs syndrome; M79.7 Fibromyalgia; Z96.89 Presence of other specified functional implants; Z79.899 Other long term (current) drug therapy ==

== ENCOUNTER → 2022-11-30 | Outpatient (CLI) | payer MEDICARE, BC | LOC: M PAIN 11:00 | PROVIDERS: ATTEND Nurse Practitioner Family | DX: M51.16 Intervertebral disc disorders with radiculopathy, lumbar region (principal); M96.1 Postlaminectomy syndrome, not elsewhere classified; G89.29 Other chronic pain; K21.9 Gastro-esophageal reflux disease without esophagitis; G25.81 Restless legs syndrome; M79.7 Fibromyalgia; Z96.89 Presence of other specified functional implants; Z79.899 Other long term (current) drug therapy ==

== ENCOUNTER → 2023-02-28 | Outpatient (CLI) | payer MEDICARE, BC | LOC: M PAIN 11:45 | PROVIDERS: ATTEND Nurse Practitioner Family | DX: M51.16 Intervertebral disc disorders with radiculopathy, lumbar region (principal); M96.1 Postlaminectomy syndrome, not elsewhere classified; G89.29 Other chronic pain; Z86.16 Personal history of COVID-19; Z96.89 Presence of other specified functional implants; Z79.899 Other long term (current) drug therapy ==

== ENCOUNTER → 2023-06-11 | Outpatient (CLI) | payer MEDICARE, BC | LOC: M PAIN 11:45 | PROVIDERS: ATTEND Nurse Practitioner Family | DX: M51.16 Intervertebral disc disorders with radiculopathy, lumbar region (principal); Z79.891 Long term (current) use of opiate analgesic; M96.1 Postlaminectomy syndrome, not elsewhere classified; G89.29 Other chronic pain; K21.9 Gastro-esophageal reflux disease without esophagitis; G25.81 Restless legs syndrome; M54.2 Cervicalgia; M79.7 Fibromyalgia; Z79.899 Other long term (current) drug therapy ==

== ENCOUNTER → 2023-09-09 | Outpatient (CLI) | payer MEDICARE, BC | LOC: M PAIN 10:15 | PROVIDERS: ATTEND Nurse Practitioner Family | DX: M51.16 Intervertebral disc disorders with radiculopathy, lumbar region (principal); Z79.891 Long term (current) use of opiate analgesic; M96.1 Postlaminectomy syndrome, not elsewhere classified; G89.29 Other chronic pain; K21.9 Gastro-esophageal reflux disease without esophagitis; G25.81 Restless legs syndrome; M79.7 Fibromyalgia; Z79.899 Other long term (current) drug therapy ==

== ENCOUNTER → 2023-12-10 | Outpatient (CLI) | payer MEDICARE, BC | LOC: M PAIN 10:00 | PROVIDERS: ATTEND Nurse Practitioner Family | DX: M51.16 Intervertebral disc disorders with radiculopathy, lumbar region (principal); Z79.891 Long term (current) use of opiate analgesic; M96.1 Postlaminectomy syndrome, not elsewhere classified; G89.29 Other chronic pain; K21.9 Gastro-esophageal reflux disease without esophagitis; G25.81 Restless legs syndrome; M79.7 Fibromyalgia; Z79.899 Other long term (current) drug therapy ==

== ENCOUNTER → 2024-02-07 | Outpatient (CLI) | payer MEDICARE, BC | LOC: M SOG 07:24 | PROVIDERS: ATTEND Physician Assistant | DX: M79.643 Pain in unspecified hand (principal) ==

== ENCOUNTER → 2024-04-09 | Outpatient (CLI) | payer MEDICARE, BC | LOC: M PAIN 10:45 | PROVIDERS: ATTEND Nurse Practitioner Family | DX: M51.16 Intervertebral disc disorders with radiculopathy, lumbar region (principal); M96.1 Postlaminectomy syndrome, not elsewhere classified; G89.29 Other chronic pain; K21.9 Gastro-esophageal reflux disease without esophagitis; G25.81 Restless legs syndrome; M54.2 Cervicalgia; M79.7 Fibromyalgia; Z79.891 Long term (current) use of opiate analgesic; Z79.899 Other long term (current) drug therapy ==